=== PATIENT | female | born 1965 | race Caucasian/White ===

== ENCOUNTER → 2016-10-08 | Outpatient (CLI) | payer OTHER ==
--- NOTE | 2016-10-09 12:05 | MR ---
EXAMINATION TYPE: MR shoulder RT wo/w con DATE OF EXAM: 10/08/2016 COMPARISON: NONE HISTORY: 51-year-old female with right shoulder soft tissue mass, Mass on top of rt shoulder, Mass ma rked Technique: Multiplanar, multisequence images of the right shoulder were obtained before and after adm inistration of 20 mL intravenous MultiHance gadolinium contrast. FINDINGS: Long head biceps tendon is intact. There is some heterogeneous signal within the subscapularis tendon. The majority of the subscapularis tendon remains intact. There is moderate degenerative joint space narrowing with marginal spurring and capsular hypertrophy with subchondral cystic change at the acromioclavicular joint. A multilocular cystic mass extends from the anterior and superior aspect of AC joint into the subcuta neous soft tissues along the top shoulder and is indicated by a palpable marker. This measures 1.8 cm wide by 3.0 cm AP by 1.6 cm thick. Postcontrast images suggest wall/septal enhancement. No enhancing soft tissue components. There is a small effusion within the subacromial/subdeltoid bursa extending into the lateral deltoid shoulder. There is additional enhancement within the bursae and lateral deltoid shelf, glenoid humeral joint sp nain, and enhancement extending up into the AC joint space at the base of the multilocular cystic lesi on. This favors a subtle full-thickness tear and possible geyser sign. Heterogeneous signal of both the supraspinatus and infraspinatus tendons. There is a deep tear of the anterior to mid supraspinatus tendon at the footprint measuring 9 mm AP and 1.3 cm long. There is in terstitial extension of tear posteriorly into the posterior supraspinatus tendon fibers for a total d imension of 1.9 cm AP and 1.5 cm long. No rotator cuff muscle atrophy. Some degenerative signal of the superior labrum. No discrete labral tear given nonarthrographic techn ique and no paralabral cyst. The glenohumeral joint appears intact. No Hill-Sachs deformity or os acromiale. Patchy red marrow hyperplasia is present and can be seen in setting of anemia, obesity, smoking, and chronic disease. IMPRESSION: 1. Palpable marker along the top shoulder. Underlying, there is a 1.9 cm multilocular ganglion cyst e xtending from the anterior and superior aspect of the moderately degenerated AC joint. 2. Diffuse rotator cuff tendinosis with either a high-grade bursal sided tear of the anterior suprasp inatus tendon (9 mm AP by 1.3 cm long), or more likely, a nondisplaced full-thickness tear given the degree of fluid in the overlying bursa and lateral deltoid shelf. There is interstitial extension of tear into the posterior supraspinatus tendon fibers. 3. No rotator cuff muscle atrophy.
== END | disposition home or self-care (01) ==
LOC: RADMRIMAIN 09:55
PROVIDERS: ATTEND Orthopaedic Surgery
DX: M67.411 Ganglion, right shoulder (principal)
CPT/HCPCS: 73223; A9577

== ENCOUNTER → 2017-06-03 | Outpatient (CLI) | payer OTHER ==
--- NOTE | 2017-06-04 09:36 | MM ---
Reason for exam: screening (asymptomatic). Last mammogram was performed 1 year and 5 months ago. History: Patient is postmenopausal. Family history of breast cancer in sister at age 56. Physical Findings: A clinical breast exam by your physician is recommended on an annual basis and results should be correlated with mammographic findings. MG Screening Mammo w CAD Bilateral CC and MLO view(s) were taken. Prior study comparison: January 10, 2016, bilateral MG screening mammo w CAD. July 14, 2012, bilateral digital screening mammo w/CAD. There are scattered fibroglandular densities. Stable benign calcifications. No significant changes when compared with prior studies. ASSESSMENT: Benign, BI-RAD 2 RECOMMENDATION: Routine screening mammogram of both breasts in 1 year.
== END | disposition home or self-care (01) ==
LOC: RADMAMWWP 09:49
PROVIDERS: ATTEND Internal Medicine
DX: Z12.31 Encounter for screening mammogram for malignant neoplasm of breast (principal)
CPT/HCPCS: 77067

== ENCOUNTER → 2017-07-14 | Outpatient (CLI) | payer OTHER ==
--- NOTE | 2017-07-14 11:19 | XR ---
EXAMINATION TYPE: XR ribs LT DATE OF EXAM: 07/14/2017 COMPARISON: NONE HISTORY: Pain TECHNIQUE: 4 views submitted FINDINGS: Arthropathy of the AC joint. There is a deformity of the posterior left 11th and 10th ribs likely in the basis of remote trauma. Remaining rib cage appears to be intact. IMPRESSION: A chronic appearing deformity of the left posterior 10th and 11th ribs. 12 rib may also b e involved. Correlate for history of previous trauma or fracture. Bone scan could BE obtained if ther e is no history of trauma.
== END | disposition home or self-care (01) ==
LOC: RADXRMAIN 09:53
PROVIDERS: ATTEND Internal Medicine
DX: M95.4 Acquired deformity of chest and rib (principal)

== ENCOUNTER → 2018-05-05 | Outpatient (CLI) | payer OTHER ==
--- NOTE | 2018-05-05 15:01 | MM ---
Reason for exam: clinical finding. Last mammogram was performed 11 months ago. History: Patient is postmenopausal. Family history of breast cancer in sister at age 56. Physical Findings: Nurse did not find any significant physical abnormalities on exam. MG Diagnostic Mammo w CAD N[place]EL Bilateral CC and MLO view(s) were taken. Prior study comparison: June 03, 2017, bilateral MG screening mammo w CAD. January 10, 2016, bilateral MG screening mammo w CAD. There are scattered fibroglandular densities. Finding: There are typically benign round calcifications in the upper outer quadrant, middle position of the right breast. Scattered benign round calcifications bilaterally. There is a chronic nodularity in the left breast. There is no discrete abnormality. These results were verbally communicated with the patient and result sheet given to the patient on 05/05/18. ASSESSMENT: Benign, BI-RAD 2 RECOMMENDATION: Routine screening mammogram of both breasts in 1 year.
--- NOTE | 2018-05-05 15:02 | USB ---
Reason for exam: clinical finding. History: Patient is postmenopausal. Family history of breast cancer in sister at age 56. Indicated problem(s): pain in the right breast. US Breast RT Right complete breast ultrasound includes all four quadrants, the retroareolar region and axilla. Finding demonstrates a 2 x 2 x 3mm oval, cystic lesion at 12 o'clock. These results were verbally communicated with the patient and result sheet given to the patient on 05/05/18. ASSESSMENT: Benign, BI-RAD 2 RECOMMENDATION: Routine screening mammogram of both breasts in 1 year. Manage on a clinical basis with regard to pain.
== END ==
LOC: RADMAMWWP 13:24
PROVIDERS: ATTEND Internal Medicine
DX: N64.4 Mastodynia (principal)
CPT/HCPCS: 77066

== ENCOUNTER → 2018-07-09 | Outpatient (CLI) | payer OTHER ==
--- NOTE | 2018-07-09 16:26 | CT ---
EXAMINATION TYPE: CT abdomen pelvis wo con DATE OF EXAM: 07/09/2018 COMPARISON: None INDICATION: Left sided pain with hematuria DLP: 1958.5 mGycm, Automated exposure control for dose reduction was used. CONTRAST: 0 mL of Isovue 300. Study performed without Oral Contrast TECHNIQUE: Axial images were obtained from above the diaphragm to the pubic rami in the axial plane a t 5 mm thick sections. Reconstructed images are reviewed on the computer in the coronal plane. FINDINGS: Limited CT sections are obtained the lung bases. The lung bases are clear. CT ABDOMEN: Liver: Normal Spleen: Normal Pancreas: Normal Adrenal glands: Left adrenal gland is thickened measuring 2.0 cm transverse dimension. The right adre nal gland is thickened measuring 2.5 cm in transverse dimension and contains a punctate calcification . Gallbladder: Normal Kidneys: No masses are evident. No hydronephrosis is present. No cysts are present. There is a 0.4 cm nonobstructing renal calcification in the mid right kidney. Aorta: Vascular calcification is within the aorta. Inferior vena cava: Normal. CT PELVIS: Loops of bowel within the abdomen and pelvis are normal. The study is performed without oral cont rast limiting bowel evaluation. Multiple scattered diverticuli are within the sigmoid colon. No acute diverticulitis is evident. Appendix: Normal as visualized. Urinary bladder: Normal. Genitourinary structures: Uterus is normal. Adnexal regions are clear. Osseous structures: No suspicious lytic or sclerotic lesions. IMPRESSIONS: 1. Diverticulosis without acute diverticulitis. 2. Nonobstructing renal calcifications mid right kidney. 3. Thickened bilateral adrenal glands.
== END ==
LOC: RADCTMAIN 13:29
PROVIDERS: ATTEND Physician Assistant
DX: K57.90 Diverticulosis of intestine, part unspecified, without perforation or abscess without bleeding (principal); N28.89 Other specified disorders of kidney and ureter; E27.9 Disorder of adrenal gland, unspecified; Z88.2 Allergy status to sulfonamides; Z88.8 Allergy status to other drugs, medicaments and biological substances
CPT/HCPCS: 74176

== ENCOUNTER → 2019-09-08 | Outpatient (CLI) | payer OTHER ==
--- NOTE | 2019-09-10 08:48 | MM ---
Reason for exam: screening (asymptomatic). Last mammogram was performed 1 year and 4 months ago. History: Patient is postmenopausal. Family history of breast cancer in sister at age 56. Physical Findings: A clinical breast exam by your physician is recommended on an annual basis and results should be correlated with mammographic findings. MG Screening Mammo w CAD Bilateral CC and MLO view(s) were taken. Prior study comparison: May 05, 2018, bilateral MG diagnostic mammo w CAD N[place]EL. June 03, 2017, bilateral MG screening mammo w CAD. There are scattered fibroglandular densities. There is chronic nodularity in the left breast. Benign group of round calcifications right upper outer quadrant. No significant changes when compared with prior studies. ASSESSMENT: Benign, BI-RAD 2 RECOMMENDATION: Routine screening mammogram of both breasts in 1 year.
== END | disposition home or self-care (01) ==
LOC: RADMAMWWP 13:29
PROVIDERS: ATTEND Internal Medicine
DX: Z12.31 Encounter for screening mammogram for malignant neoplasm of breast (principal)
CPT/HCPCS: 77067

== ENCOUNTER 2021-10-23 08:08 | Inpatient (IN) | payer OTHER ==
[2021-10-23] MEDS ORDERED: fentaNYL (PF) 50 MCG/ML 2 ML AMP ONE (08:54)
[2021-10-23] MEDS ORDERED: SODIUM CHLORIDE 0.9% 1,000 ML IV ONE (09:00)
[2021-10-23] MEDS ORDERED: LIDOCAINE 1% INJ 10MG/ML (30 ML VIAL-PF) SQ ONE (09:12)
[2021-10-23] MEDS ORDERED: MIDAZOLAM 2 MG/2 ML VIAL IV ONE ×2 (09:14→10:04)
[2021-10-23] MEDS: fentaNYL (PF) 50 MCG/ML 2 ML AMP IV ONE ×2 (09:14→09:29)
[2021-10-23] MEDS ORDERED: HEPARIN SODIUM 1,000 UN/ML (10ML VL) ONE (09:36)
[2021-10-23] MEDS ORDERED: HYDROmorphone 0.5 MG/0.5 ML SYRINGE IVP ONE ×2 (09:58→10:28)
[2021-10-23] MEDS ORDERED: TICAGRELOR 90 MG TAB PO ONE (10:00)
[2021-10-23] MEDS: HEPARIN SODIUM 1,000 UN/ML (10ML VL) IV ONE ×3 (10:00→10:31)
[2021-10-23] MEDS ORDERED: TICAGRELOR 90 MG TAB ONE (10:01)
[2021-10-23] MEDS ORDERED: NITROGLYCERIN 1000MCG/10ML SYRINGE INTRACORON ONE ×2 (10:19→10:29)
[2021-10-23] MEDS ORDERED: IOPAMIDOL-370 125ML BTL INJ ONE (10:22)
[2021-10-23] MEDS ORDERED: IOPAMIDOL-370 100ML BTL INJ ONE (10:33)
[2021-10-23 12:27] LABS: Glucose,Whole Blood 200 mg/dL (70-110)
[2021-10-23] MEDS ORDERED: ACETAMINOPHEN TAB 325 MG TAB PO PRN (13:08)
[2021-10-23] MEDS ORDERED: MELATONIN 3 MG TABLET PO PRN (13:08)
[2021-10-23] MEDS ORDERED: NALOXONE 0.4 MG/ML 1 ML VIAL IV PRN (13:08)
[2021-10-23] MEDS ORDERED: DEXTROSE 50% SYRINGE 50 ML IVP PRN ×2 (13:12)
[2021-10-23] MEDS: HYDROcodone/APAP 10-325MG 1 EACH TAB PO PRN (13:22)
[2021-10-23] MEDS: BACLOFEN 10 MG TAB PO SCH ×2 (13:22→20:59)
[2021-10-23] MEDS: ALBUTEROL NEBULIZED 2.5 MG/3 ML INHALATION PRN ×2 (14:40→19:56)
--- NOTE | 2021-10-23 14:51 | XR ---
EXAMINATION TYPE: XR chest 1V portable DATE OF EXAM: 10/23/2021 2:19 PM COMPARISON: Chest radiographs from 07/14/2017 TECHNIQUE: XR chest 1V portable Portable AP radiograph of the chest. CLINICAL INDICATION:Female, 56 years old with history of shortness of breath; FINDINGS: Lungs/Pleura: Increased interstitial lung markings throughout the lungs. There is no evidence of pleu ral effusion, focal consolidation, or pneumothorax. Pulmonary vascularity: Unremarkable. Heart/mediastinum: Cardiomediastinal silhouette is enlarged and stable. Musculoskeletal: No acute osseous pathology. IMPRESSION: 1. No acute cardiopulmonary disease/process. 2. Chronic interstitial lung changes.
[2021-10-23] MEDS ORDERED: ATROPINE SULFATE 0.1 MG/ML 10ML SYRINGE IV PRN (16:16)
[2021-10-23] MEDS ORDERED: NITROGLYCERIN SL TABS 0.4 MG TAB SUBLINGUAL PRN (16:16)
[2021-10-23] MEDS ORDERED: ZOLPIDEM 5 MG TAB PO PRN (16:16)
[2021-10-23] MEDS ORDERED: RX INFO: IV CONTRAST WAS GIVEN 1 EACH MISC MISCELLANE PRN (16:16)
[2021-10-23] MEDS ORDERED: MAG HYDROX/AL HYDROX/SIMETH 30 ML CUP PO PRN (16:16)
[2021-10-23 16:32] LABS: Glucose,Whole Blood 177 mg/dL (70-110)
[2021-10-23] MEDS: INSULIN ASPART (NovoLOG) 100 UNIT/ML VIAL SQ SCH ×2 (16:44→20:59)
[2021-10-23 20:09] LABS: Glucose,Whole Blood 137 mg/dL (70-110)
--- NOTE | 2021-10-23 20:39 | CC ---
CARDIAC CATHETERIZATION REPORT INDICATION: Acute inferior wall SD. PROCEDURE NOTE: After obtaining informed consent, left heart catheterization and coronary angiogram were performed via the right femoral artery using standard [facility] catheters. The patient tolerated the procedure well without any obvious immediate complications. I performed femoral catheterization instead of the radial catheterization as she has a questionable problem with her right brachial artery that has been investigated in the past. I do not have any of the records. The patient received moderate conscious sedation. Total sedation time was 15 minutes. FINDINGS: 1. Hemodynamics: Left ventricular end-diastolic pressure is 16 mm. There is no significant gradient across the aortic valve. 2. Left ventriculogram: Left ventriculogram is not performed. 3. Angiographic data: a.Right coronary artery: Right coronary artery is a large dominant vessel, that is subtotally occluded in its mid portion with an area of plaque rupture. There are extensive collaterals from the left to the distal right. b.Left main coronary artery is a normal-sized vessel and is free of stenosis. Divides into left anterior descending coronary artery and circumflex coronary artery. The circumflex coronary artery distally shows a 90% focal stenosis. Ramus intermedius shows a 70% to 80% ostial stenosis. LAD has a focal 70% stenosis. CONCLUSION: Severe 3-vessel coronary artery disease as described above with acute occlusion of the right coronary artery based on the EKG changes and clinical presentation. PLAN: I am going to ask Dr. Wilkerson, the on-call golf sales manager, to proceed with angioplasty of the right coronary artery and decide on what to do with the rest of her vessels at a later time. MMODL / IJN: [id number] /
--- NOTE | 2021-10-23 20:39 | CONS ---
CONSULTATION CHIEF COMPLAINT: Chest pain. HISTORY OF PRESENT ILLNESS: This is a 56-year-old lady with a history of hypertension, arthritis, non-insulin- dependent diabetes, and dyslipidemia, who presented to [facility] yesterday in the evening complaining of chest pain. She describes it as a precordial chest pressure, itlketak-tj-ajgefk intensity at rest. Had evidence of inferior wall myocardial infarction. ER physician has diagnosed acute ibb-UL-qipnhre elevation WA. She had a V/Q scan, that was negative for pulmonary embolism, and was treated with heparin and became pain-free. As a physician rounding in the hospital, I went to see the patient this morning, and the patient at the time of my evaluation was chest-pain- free, hemodynamically stable, and in no apparent distress. She has had 3 sets of troponins. They have all come back elevated. The third set was higher than the second set. Given her presentation with acute inferior wall WA and elevated troponins, I advised the patient to undergo emergent cardiac catheterization with a view to performing angioplasty, and I am transferring her to [facility] for the same. I am going to do a right femoral catheterization as the patient tells me she has an expanding lesion within the right brachial artery. I am not exactly sure what it is. From her description, it sounds like an aneurysm. I do not have any of the records of the prior testing that she had. PAST MEDICAL HISTORY: Significant for hypertension, diabetes, dyslipidemia, and severe COPD. MEDICATIONS AT HOME: Include: 1. Nebulizers. 2. Amlodipine 5 daily. 3. Pepcid. 4. Claritin. 5. Glucophage. 6. Singulair. 7. Crestor. 8. Turmeric. ALLERGIES: As charted. FAMILY HISTORY: Significant for premature coronary artery disease. SOCIAL HISTORY: Significant for smoking. There is no history of EtOH abuse or drug abuse. REVIEW OF SYSTEMS: HEENT: Unremarkable. CARDIAC: As described above. RESPIRATORY: As described above. GI: Negative. GENITOURINARY: Negative. ALLERGY/IMMUNOLOGY: Negative. SKIN: Negative. MUSCULOSKELETAL: Significant for arthritis. PSYCHOSOCIAL: Negative. DERM: Negative. CONSTITUTIONAL: Negative. ONCOLOGICAL: Negative. Rest of the system review is not relevant. PHYSICAL EXAMINATION: GENERAL: Comfortable at rest. VITAL SIGNS: Stable. CHEST: Reveals diffuse bilateral rhonchi. HEART: Reveals first and second heart sounds. No gallop. No murmur. ABDOMEN: Soft and nontender. EXTREMITIES: Did not reveal any edema. Peripheral pulses are felt. LABORATORY DATA: I reviewed the labs. Renal functions are normal. Troponins are elevated. EKG shows evidence of recent inferior wall myocardial infarction. ASSESSMENT: Acute inferior wall myocardial infarction. PLAN: We will transfer the patient to [facility] for further care. MMODL / IJN: [id number] /
[2021-10-23] MEDS ORDERED: NON FORMULARY DRUG (Turmeric Root Extract [Turmeric] 500 MG Tablet) PO SCH (21:00)
--- NOTE | 2021-10-24 00:22 | P.HPIM ---
History of Present Illness H&P Date: 10/24/21 Chief Complaint: Chest pain Patient is a 56-year-old female with a known history of hypertension, hyperlipidemia, diabetes type 2 cid-ocyfxgo-xyjhqcfxj, ongoing nicotine addiction and chronic back pain presents to ER with complaints of chest pain. Chest pain is mainly mid retrosternal and across the upper chest. Patient felt like tightness sensation in the chest. Denied any radiation of the pain. Patient felt very dizzy and lightheaded and diaphoretic and also shortness of breath. Patient had similar symptoms twice recently but resolved by itself. Patient was also having chronic cough and exertional dyspnea. No sputum production. No fever no chills. Denied any recent illnesses. No sick contacts or recent travel. Patient sodium level is 142 potassium 3.6 chloride 106 bicarb is 28.8 BUN 17 and creatinine 0.7 blood sugar is 153 and liver enzymes are not elevated UDS is positive for cannabinoids and opiates. WBC 12.9 hemoglobin 15.6 and platelets 213 D-dimer was 763.5 Troponin 1976, 2451 and 3337 and proBNP is 602 Chest x-ray showed no acute cardiopulmonary findings EKG showed sinus rhythm with evidence of recent inferior wall infarct. Patient was transferred to [facility] for coronary intervention. Patient underwent cardiac catheterization showed severe three-vessel coronary disease with occlusion of the right coronary artery. Review of Systems Constitutional: Patient denies any fever or chills . no Generalized weakness. Abdomen: Patient denied any nausea or vomiting or abd. pain Cardiovascular: Patient does complain of chest tightness, dizziness lightheadedness and diaphoretic. No palpations. No leg swelling. Respiratory: patient denied any cough is from production. No shortness of breath Neurologic: Patient denied any numbness or tingling headache. Musculoskeletal: Patient denies any complaints of joint swelling or deformity. Skin: Negative Psychiatric: Negative Endocrine: No heat or cold intolerance. No recent weight gain. Genitourinary: No dysuria or hematuria. All other 14 point ROS negative except the above Past Medical History Past Medical History: Hyperlipidemia, Hypertension Additional Past Medical History / Comment(s): scoliosis, bulging/herniated discs in back, chronic right hip pain for multiple years. History of Any Multi-Drug Resistant Organisms: None Reported Past Surgical History: Heart Catheterization With Stent Additional Past Surgical History / Comment(s): colonoscopy with hemrhoids banded. hand surgery. Past Anesthesia/Blood Transfusion Reactions: No Reported Reaction Date of Last Stent Placement:: 10/23/2021 Past Psychological History: No Psychological Hx Reported Smoking Status: Current every day smoker Past Alcohol Use History: None Reported Additional Past Alcohol Use History / Comment(s): patient states she is a current everyday smoker 2 packs/day but she is quitting now. Past Drug Use History: Marijuana Medications and Allergies Home Medications Medication Instructions Recorded Confirmed Type Albuterol Sulfate [Proair Hfa] 2 puff INHALATION RT-Q6H PRN 10/23/21 10/23/21 History Ascorbic Acid [Vitamin C] 500 mg PO DAILY 10/23/21 10/23/21 History Baclofen 10 mg PO BID 10/23/21 10/23/21 History Budesonide-Formot 160-4.5 Mcg 2 puff INHALATION RT-DAILY 10/23/21 10/23/21 Hi story [Symbicort 160-4.5 Mcg Inhaler] Cholecalciferol [Vitamin D3 (25 25 mcg PO DAILY 10/23/21 10/23/21 History Mcg = 1000 Iu)] HYDROcodone/APAP 10-325MG [Fedscreek 1 tab PO QID PRN 10/23/21 10/23/21 History 10-325] Loratadine [Claritin] 10 mg PO DAILY 10/23/21 10/23/21 History Montelukast [Singulair] 10 mg PO DAILY 10/23/21 10/23/21 History Omeprazole 20 mg PO DAILY 10/23/21 10/23/21 History Rosuvastatin Calcium [Crestor] 40 mg PO DAILY 10/23/21 10/23/21 History Turmeric Root Extract [Turmeric] 500 mg PO BID 10/23/21 10/23/21 History amLODIPine [Norvasc] 5 mg PO DAILY 10/23/21 10/23/21 History metFORMIN HCL 500 mg PO DAILY@1500 10/23/21 10/23/21 History Allergies Allergy/AdvReac Type Severity Reaction Status Date / Time metoclopramide [From Reglan] Allergy Confusion Verified 10/23/21 12:34 Physical Exam Vitals: Vital Signs Temp Pulse Pulse Resp BP Pulse Ox 10/23/21 20:06 56 L 10/23/21 19:56 58 L 10/23/21 19:50 98.1 F 59 L 20 170/85 96 10/23/21 15:15 73 20 118/75 95 10/23/21 14:54 64 10/23/21 14:40 60 10/23/21 14:15 62 20 119/77 94 L 10/23/21 14:00 73 20 10/23/21 13:15 66 20 118/72 95 10/23/21 12:45 63 20 135/87 95 10/23/21 12:15 68 20 129/77 94 L 10/23/21 12:00 65 18 134/78 93 L 10/23/21 11:45 59 L 18 116/74 93 L 10/23/21 11:30 72 18 119/77 88 L 10/23/21 10:53 75 16 134/78 93 L Intake and Output 10/23/21 10/23/21 10/24/21 14:59 22:59 06:59 Intake Total 1000 Balance 1000 Intake: IV 400 Oral 600 Other: Voiding Method Toilet Toilet Bedpan # Voids 2 3 Weight 110.223 kg PHYSICAL EXAMINATION: Patient is lying in the bed comfortably, no acute distress, awake alert and oriented.. HEENT: Normocephalic. Neck is supple. Pupils reactive. Nostrils clear. Oral cavity is moist. Morbidly obese. Neck reveals no JVD, carotid bruits, or thyromegaly. CHEST EXAMINATION: Trachea is central. Symmetrical expansion. Bibasilar diminished sounds and no wheezing noted.. CARDIAC: Normal S1, S2 with no gallops. No murmurs ABDOMEN: Soft. Bowel sounds present. Nontender. No organomegaly. No abdominal bruits. Extremities: reveal no edema. No clubbing or cyanosis Neurologically awake, alert, oriented x3 with well-coordinated movements. No focal deficits noted Skin: No rash or skin lesions. Psychiatric: Coperative. Nonsuicidal, anxious, Musculoskeletal: No joint swelling or deformity. Normal range of motion. Results Labs: Abnormal Lab Results - Last 24 Hours (Table) 10/23/21 10/23/21 10/23/21 Range/Units 12:21 16:30 20:08 POC Glucose (mg/dL) 200 H 177 H 137 H (70-110) mg/dL Thrombosis Risk Factor Assmnt - DVT/VTE Prophylaxis DVT/VTE Prophylaxis: Pharmacologic Prophylaxis ordered - Choose All That Apply Any of the Below Risk Factors Present?: Yes Each Factor Represents 1 point: Acute NJ, Age 41-60 years, Medical pt on bed rest Other Risk Factors: No Other congenital or acquired thrombophilia - If yes, enter type in comment: No Thrombosis Risk Factor Assessment Total Risk Factor Score: 3 Thrombosis Risk Factor Assessment Level: Moderate Risk Assessment and Plan Assessment: Acute non-ST elevated NJ status postcardiac catheterization Recent inferior wall NJ as per EKG Hypertension Diabetes type 2 nha-mutjdee-wmkjvycul Chronic back pain Asthma and COPD Morbid obesity GI and DVT prophylaxis Plan: Patient is status post cardiac catheterization and found to have triple-vessel disease. Continue with aspirin, statins and Brilinta, metoprolol was added. Cardiology is on board. Continue telemetry monitoring. Follow-up repeat CBC and BMP. Prognosis is guarded. Smoking cessation has been consulted. Time with Patient: Greater than 30
--- NOTE | 2021-10-24 01:24 | P.PRCINT ---
Percutaneous Coronary Int. - Percutaneous Coronary Intervention Percutaneous Coronary Intervention: PROCEDURES PERFORMED: Right coronary angiography, PCI RCA with 4.0 x 12mm Xience mid RCA, 3.5 x 23mm Xience distal RCA INDICATION: Non-STEMI HISTORY: Patient is a pleasant 56-year-old female who presented with chest di scomfort and was found to have non-STEMI. She underwent diagnostic heart catheterization which showed obstructive disease of the LAD as well as circumflex with culprit felt to be the RCA with 99% stenosis. Therefore I was asked to perform PCI of the RCA. PROCEDURE: After the risks, benefits and alternatives of the above mentioned procedure explained in detail with the patient, informed consent was obtained. Patient had already been taken to the catheterization lab and prepped and draped in usual fashion. A right femoral sheath and artery been placed for diagnostic procedure. A 6-Yakut AL 0.75 guide was used to engage the RCA. A BMW wire was attempted to pass however not easily able to be wired. Therefore a 0.014 Fielder XT wire was used to pass the lesion and placed on the distal RCA. Predilation was initially performed with a 1.5 balloon and then with a 3.25 x 12 mm noncompliant balloon. Next a 4.0 x 12 mm Xience TIMMY was placed in the mid RCA. There was a more distal 70% stenosis and therefore predilation was performed with a 3.25 x 12 mm noncompliant balloon. An additional 3.5 x 23 mm Xience TIMMY was placed in the distal RCA. Predilation there was 99% stenosis and ELIN 2 flow and post- dilation there was 0% stenosis and ELIN-3 flow. Right femoral angiogram showed adequate anatomy for closure a 6-Yakut Angio-Seal was placed. Hemostasis was achieved. The patient tolerated the procedure well. Patient was transported back to the post catheterization holding area in stable condition. Conscious Sedation: Patient was monitored under the direct supervision of vision of myself for conscious sedation using Versed and fentanyl for a total duration of 36 minutes HEMODYNAMICS: Aorta: 147/78 FINAL IMPRESSION: 1. CAD as described above including tandem 99% and 70% RCA stenoses, status post PCI RCA with 4.0 x 12mm Xience mid RCA, 3.5 x 23mm Xience distal RCA 2. Residual obstructive LAD and circumflex disease PLAN: 1. Aggressive risk factor modification per most recent ACC/AHA guidelines. 2. Continue dual antiplatelets with aspirin and Brilinta for 12 months. 3. Staged PCI of LAD/circumflex
[2021-10-24] MEDS: ONDANSETRON 4 MG/2 ML VIAL IVP PRN (02:18)
[2021-10-24] MEDS: ALPRAZolam 0.25 MG TAB PO PRN ×2 (04:16→20:54)
[2021-10-24 05:43] LABS: Glucose,Whole Blood 174 mg/dL (70-110)
[2021-10-24] MEDS: INSULIN ASPART (NovoLOG) 100 UNIT/ML VIAL SQ SCH ×4 (06:33→20:54)
[2021-10-24] MEDS: PANTOPRAZOLE 40 MG TABLET PO SCH (06:34)
[2021-10-24 07:53] LABS: African American GFR (CKD) >90 (>60 ml/min/1.73 sqM); Anion Gap 8 mmol/L; Blood Urea Nitrogen 11 mg/dL (7-17); Calcium 8.9 mg/dL (8.4-10.2); Carbon Dioxide 29 mmol/L (22-30); Chloride 103 mmol/L (98-107); Glucose 152 mg/dL (74-99); Magnesium 1.8 mg/dL (1.6-2.3); Non-African American GFR(CKD) >90 (>60 ml/min/1.73 sqM); Potassium 3.8 mmol/L (3.5-5.1); Sodium 140 mmol/L (137-145)
[2021-10-24 08:08] LABS: Basophils % (A) 0 %; Eosinophils # (A) 0.1 k/uL (0-0.7); Eosinophils % (A) 0 %; HCT 54.3 % (34.0-46.0); HGB 17.4 gm/dL (11.4-16.0); Hypochromasia Slight; Lymphocytes # (A) 1.4 k/uL (1.0-4.8); Lymphocytes % (A) 8 %; MCH 29.7 pg (25.0-35.0); MCV 92.9 fL (80.0-100.0); Mean Platelet Volume 9.4; Monocytes # (A) 0.8 k/uL (0-1.0); Monocytes % (A) 5 %; Neutrophils # (A) 15.1 k/uL (1.3-7.7); Neutrophils % (A) 86 %; Platelet Count 238 k/uL (150-450); RBC 5.84 m/uL (3.80-5.40); RDW 14.8 % (11.5-15.5); WBC 17.6 k/uL (3.8-10.6)
[2021-10-24 08:29] LABS: Prothrombin Time 10.9 sec (9.0-12.0)
[2021-10-24] MEDS: SYMBICORT 160-4.5 MCG INHALER INHALATION SCH (08:33)
[2021-10-24] MEDS: ALBUTEROL NEBULIZED 2.5 MG/3 ML INHALATION PRN (08:33)
[2021-10-24] MEDS: ASPIRIN 81 MG PO SCH (09:41)
[2021-10-24] MEDS: LORATADINE 10 MG TAB PO SCH (09:41)
[2021-10-24] MEDS: MONTELUKAST 10 MG TAB PO SCH (09:41)
[2021-10-24] MEDS: ASCORBIC ACID 500 MG TAB PO SCH (09:41)
[2021-10-24] MEDS: CHOLECALCIFEROL 25 MCG (1000 IU) TABLET PO SCH (09:41)
[2021-10-24] MEDS: TICAGRELOR 90 MG TAB PO SCH ×2 (09:42→20:54)
[2021-10-24] MEDS: ATORVASTATIN 80 MG TAB PO SCH (09:42)
[2021-10-24] MEDS: amLODIPine 5 MG TAB PO SCH (09:42)
[2021-10-24] MEDS: METOPROLOL SUCCINATE (ER) 25 MG TAB.ER.24H PO SCH (09:42)
[2021-10-24] MEDS: BACLOFEN 10 MG TAB PO SCH ×2 (09:42→20:54)
[2021-10-24] MEDS: NICOTINE 14MG/24HR PATCH TRANSDERM SCH (10:08)
[2021-10-24 11:56] LABS: Glucose,Whole Blood 137 mg/dL (70-110)
--- NOTE | 2021-10-24 12:45 | P.PN ---
Subjective Progress Note Date: 10/24/21 HISTORY OF PRESENT ILLNESS: This is a 56-year-old female who underwent cardiac catheterization with Dr. King revealing coronary artery disease including tandem 99% and 70% RCA stenosis. Patient also found to have stenosis of LAD and circumflex. Patient underwent stenting of the RCA [address] Wilkerson. Patient examined this morning at the bedside. Patient denies any chest pain or pressure. She denies any shortness of breath. She reports an occasional cough. Patient is a 1.5-2 PPD smoker. She feels like her breathing is better today than it usually is. WBC today 17.6. Patient is afebrile. Vital signs are stable. PHYSICAL EXAM: VITAL SIGNS: Reviewed. GENERAL: Well-developed in no acute distress. NECK: Supple. No JVD or thyromegaly LUNGS: Respirations even and unlabored. Lungs diminished with expiratory wheezing and scattered rhonchi. HEART: Regular rate and rhythm. S1 and S2 heard. EXTREMITIES: Normal range of motion. No clubbing or cyanosis. Peripheral pulses intact. No lower extremity edema ASSESSMENT: Non-STEMI, status post RCA stenting Leukocytosis Hypertension Hyperlipidemia Diabetes COPD Nicotine dependence PLAN: Continue current cardiac medications Continue dual antiplatelet therapy Patient will have staged PCI of LAD and circumflex in near future Strongly advised patient to stop smoking Possible stenting of circumflex and LAD Friday or outpt in next 1-2 weeks. Nurse practitioner note has been reviewed by physician. Signing provider agrees with the documented findings, assessment, and plan of care. Objective - Vital Signs Vital signs: Vital Signs Temp 97.3 F L 10/24/21 04:11 Pulse 73 10/24/21 08:45 Resp 18 10/24/21 04:11 BP 159/85 10/24/21 04:11 Pulse Ox 99 10/24/21 08:33 FiO2 Intake & Output 10/23/21 10/24/21 10/24/21 18:59 06:59 18:59 Intake Total 1000 400 Balance 1000 400 Weight 110.223 kg Intake: IV 400 Oral 600 400 Other: Voiding Method Toilet Toilet Bedpan # Voids 3 2 1 - Labs CBC & Chem 7: 10/24/21 06:21 10/24/21 06:21 Labs: Abnormal Lab Results - Last 24 Hours (Table) 10/23/21 10/23/21 10/24/21 Range/Units 16:30 20:08 05:42 WBC (3.8-10.6) k/uL RBC (3.80-5.40) m/uL Hgb (11.4-16.0) gm/dL Hct (34.0-46.0) % Neutrophils # (1.3-7.7) k/uL Creatinine (0.52-1.04) mg/dL Glucose (74-99) mg/dL POC Glucose (mg/dL) 177 H 137 H 174 H (70-110) mg/dL Hemoglobin A1c (0.0-6.0) % 10/24/21 10/24/21 10/24/21 Range/Units 06:21 06:21 06:21 WBC 17.6 H (3.8-10.6) k/uL RBC 5.84 H (3.80-5.40) m/uL Hgb 17.4 H (11.4-16.0) gm/dL Hct 54.3 H (34.0-46.0) % Neutrophils # 15.1 H (1.3-7.7) k/uL Creatinine 0.45 L (0.52-1.04) mg/dL Glucose 152 H (74-99) mg/dL POC Glucose (mg/dL) (70-110) mg/dL Hemoglobin A1c 7.2 H (0.0-6.0) % 10/24/21 Range/Units 11:55 WBC (3.8-10.6) k/uL RBC (3.80-5.40) m/uL Hgb (11.4-16.0) gm/dL Hct (34.0-46.0) % Neutrophils # (1.3-7.7) k/uL Creatinine (0.52-1.04) mg/dL Glucose (74-99) mg/dL POC Glucose (mg/dL) 137 H (70-110) mg/dL Hemoglobin A1c (0.0-6.0) %
[2021-10-24 14:40] VITALS: BMI 43.0
[2021-10-24 16:51] LABS: Glucose,Whole Blood 136 mg/dL (70-110)
[2021-10-24] MEDS ORDERED: SENNOSIDES 8.6 MG TAB PO PRN (19:19)
[2021-10-24 20:16] LABS: Glucose,Whole Blood 147 mg/dL (70-110)
[2021-10-25] MEDS: ONDANSETRON 4 MG/2 ML VIAL IVP PRN (04:38)
[2021-10-25 05:46] LABS: Glucose,Whole Blood 147 mg/dL (70-110)
[2021-10-25] MEDS: INSULIN ASPART (NovoLOG) 100 UNIT/ML VIAL SQ SCH ×2 (06:10→12:04)
[2021-10-25] MEDS: PANTOPRAZOLE 40 MG TABLET PO SCH (06:58)
[2021-10-25] MEDS: ALBUTEROL NEBULIZED 2.5 MG/3 ML INHALATION PRN (07:17)
[2021-10-25] MEDS: SYMBICORT 160-4.5 MCG INHALER INHALATION SCH (07:17)
[2021-10-25 08:34] LABS: Basophils % (A) 0 %; Eosinophils % (A) 0 %; HGB 18.8 gm/dL (11.4-16.0); Hypochromasia Slight; Lymphocytes # (A) 1.9 k/uL (1.0-4.8); Lymphocytes % (A) 14 %; MCH 29.9 pg (25.0-35.0); MCV 93.2 fL (80.0-100.0); Mean Platelet Volume 8.8; Monocytes # (A) 0.7 k/uL (0-1.0); Monocytes % (A) 5 %; Neutrophils # (A) 10.2 k/uL (1.3-7.7); Neutrophils % (A) 79 %; Platelet Count 261 k/uL (150-450); RBC 6.31 m/uL (3.80-5.40); RDW 14.8 % (11.5-15.5); WBC 12.9 k/uL (3.8-10.6)
[2021-10-25 08:37] VITALS: RESP 20
[2021-10-25 08:40] LABS: African American GFR (CKD) >90 (>60 ml/min/1.73 sqM); Anion Gap 14 mmol/L; Blood Urea Nitrogen 15 mg/dL (7-17); Calcium 9.2 mg/dL (8.4-10.2); Carbon Dioxide 26 mmol/L (22-30); Chloride 101 mmol/L (98-107); Glucose 141 mg/dL (74-99); Non-African American GFR(CKD) >90 (>60 ml/min/1.73 sqM); Potassium 4.1 mmol/L (3.5-5.1); Sodium 141 mmol/L (137-145)
[2021-10-25] MEDS: MONTELUKAST 10 MG TAB PO SCH (08:41)
[2021-10-25] MEDS: ASPIRIN 81 MG PO SCH (08:41)
[2021-10-25] MEDS: ATORVASTATIN 80 MG TAB PO SCH (08:41)
[2021-10-25] MEDS: METOPROLOL SUCCINATE (ER) 25 MG TAB.ER.24H PO SCH (08:41)
[2021-10-25] MEDS: ASCORBIC ACID 500 MG TAB PO SCH (08:41)
[2021-10-25] MEDS: amLODIPine 5 MG TAB PO SCH (08:41)
[2021-10-25] MEDS: TICAGRELOR 90 MG TAB PO SCH (08:41)
[2021-10-25] MEDS: CHOLECALCIFEROL 25 MCG (1000 IU) TABLET PO SCH (08:41)
[2021-10-25] MEDS: BACLOFEN 10 MG TAB PO SCH (08:42)
[2021-10-25] MEDS: LORATADINE 10 MG TAB PO SCH (08:42)
[2021-10-25] MEDS: HYDROcodone/APAP 10-325MG 1 EACH TAB PO PRN (08:43)
[2021-10-25] MEDS: NICOTINE 14MG/24HR PATCH TRANSDERM SCH (08:44)
[2021-10-25 08:46] LABS: HCT 58.8 % (34.0-46.0)
[2021-10-25 11:43] VITALS: BP 93/64; PULSE 92; TEMP 98.1
[2021-10-25 11:54] LABS: Glucose,Whole Blood 122 mg/dL (70-110)
--- NOTE | 2021-10-25 13:05 | P.PN ---
Subjective Progress Note Date: 10/25/21 HISTORY OF PRESENT ILLNESS: This is a 56-year-old female who underwent cardiac catheterization with Dr. King revealing coronary artery disease including tandem 99% and 70% RCA stenosis. Patient also found to have stenosis of LAD and circumflex. Patient underwent stenting of the RCA [address] Wilkerson. Patient examined this morning at the bedside. Patient denies any chest pain or pressure. She denies any shortness of breath. She reports an occasional cough. Patient is a 1.5-2 PPD smoker. She feels like her breathing is better today than it usually is. WBC today 17.6. Patient is afebrile. Vital signs are stable. 10/25/2021 Patient examined this morning at the bedside. Patient denies chest pain or pressure. She denies shortness of breath. Vital signs are stable. Patient's WBC is 12.9. Patient states she was told in the past that her white blood cell count is always elevated and she was referred to hematology but states she has not seen anyone yet. Patient is afebrile. Vital signs are stable. Blood pressure 104/64 PHYSICAL EXAM: VITAL SIGNS: Reviewed. GENERAL: Well-developed in no acute distress. NECK: Supple. No JVD or thyromegaly LUNGS: Respirations even and unlabored. Lungs diminished with expiratory wheezing and scattered rhonchi. HEART: Regular rate and rhythm. S1 and S2 heard. EXTREMITIES: Normal range of motion. No clubbing or cyanosis. Peripheral pulses intact. No lower extremity edema ASSESSMENT: Non-STEMI, status post RCA stenting Leukocytosis Hypertension Hyperlipidemia Diabetes COPD Nicotine dependence PLAN: Continue current cardiac medications Continue dual antiplatelet therapy Strongly advised patient to stop smoking Patient will have staged PCI of LAD and circumflex in the next 1-2 weeks Patient may be discharged home from a cardiac standpoint and follow up in the office Nurse practitioner note has been reviewed by physician. Signing provider agrees with the documented findings, assessment, and plan of care. Objective - Vital Signs Vital signs: Vital Signs Temp 98.1 F 10/25/21 11:42 Pulse 92 10/25/21 11:42 Resp 20 10/25/21 11:42 BP 93/64 10/25/21 11:42 Pulse Ox 92 L 10/25/21 08:00 FiO2 Intake & Output 10/24/21 10/25/21 10/25/21 18:59 06:59 18:59 Intake Total 200 Balance 200 Weight 110.223 kg Intake: Oral 200 Other: Voiding Method Toilet Toilet # Voids 1 2 1 - Labs CBC & Chem 7: 10/25/21 06:56 10/25/21 06:56 Labs: Abnormal Lab Results - Last 24 Hours (Table) 10/24/21 10/24/21 10/25/21 Range/Units 16:50 20:15 05:45 WBC (3.8-10.6) k/uL RBC (3.80-5.40) m/uL Hgb (11.4-16.0) gm/dL Hct (34.0-46.0) % Neutrophils # (1.3-7.7) k/uL Glucose (74-99) mg/dL POC Glucose (mg/dL) 136 H 147 H 147 H (70-110) mg/dL 10/25/21 10/25/21 10/25/21 Range/Units 06:56 06:56 11:52 WBC 12.9 H (3.8-10.6) k/uL RBC 6.31 H (3.80-5.40) m/uL Hgb 18.8 H (11.4-16.0) gm/dL Hct 58.8 H* (34.0-46.0) % Neutrophils # 10.2 H (1.3-7.7) k/uL Glucose 141 H (74-99) mg/dL POC Glucose (mg/dL) 122 H (70-110) mg/dL
== END 2021-10-25 14:41 | disposition home or self-care (01) | DRG 247 ==
LOC: 3SCARD 08:55
PROVIDERS: ADMIT Internal Medicine; ATTEND Internal Medicine
PROC: B2111ZZ Fluoroscopy of Multiple Coronary Arteries using Low Osmolar Contrast (ICD-10-PCS; 2021-10-23)
PROC: B2151ZZ Fluoroscopy of Left Heart using Low Osmolar Contrast (ICD-10-PCS; 2021-10-23)
PROC: 4A023N7 Measurement of Cardiac Sampling and Pressure, Left Heart, Percutaneous Approach (ICD-10-PCS; 2021-10-23 15:30)
PROC: 027035Z Dilation of Coronary Artery, One Artery with Two Drug-eluting Intraluminal Devices, Percutaneous Approach (ICD-10-PCS; principal; 2021-10-24)
DX: I21.4 Non-ST elevation (NSTEMI) myocardial infarction (principal); E11.9 Type 2 diabetes mellitus without complications; E66.01 Morbid (severe) obesity due to excess calories; I10 Essential (primary) hypertension; J44.9 Chronic obstructive pulmonary disease, unspecified; D72.829 Elevated white blood cell count, unspecified; E78.5 Hyperlipidemia, unspecified; I25.10 Atherosclerotic heart disease of native coronary artery without angina pectoris; I21.19 ST elevation (STEMI) myocardial infarction involving other coronary artery of inferior wall; G89.29 Other chronic pain; M54.9 Dorsalgia, unspecified; M19.90 Unspecified osteoarthritis, unspecified site; M41.9 Scoliosis, unspecified; M25.551 Pain in right hip; F17.210 Nicotine dependence, cigarettes, uncomplicated; Z79.84 Long term (current) use of oral hypoglycemic drugs; Z79.899 Other long term (current) drug therapy; Z79.51 Long term (current) use of inhaled steroids; Z88.8 Allergy status to other drugs, medicaments and biological substances; Z82.49 Family history of ischemic heart disease and other diseases of the circulatory system; Z95.5 Presence of coronary angioplasty implant and graft
CPT/HCPCS: 71045; 80048; 83036; 83735; 84145; 85025; 85610; 93458; 94640; 94760

== ENCOUNTER 2021-11-09 08:50 | Day surgery (SDC) | payer OTHER ==
[2021-11-07 16:15] VITALS: BMI 41.6
[~2021-11-09 08:50] MED LIST: ALPRAZolam 0.25 MG TAB PO PRN; ALPRAZolam 0.5 MG TAB PO PRN; ASPIRIN 325 MG TAB PO ONE; ATORVASTATIN 80 MG TAB PO ONE; HEPARIN SODIUM,PORCINE 10,000 UNIT in SODIUM CHLORIDE 0.9% 1,000 ML IRRIGATION PRN; HEPARIN SODIUM,PORCINE 2,500 UNIT in SODIUM CHLORIDE 0.9% 250 ML IRRIGATION PRN; NITROGLYCERIN SL TABS 0.4 MG TAB SUBLINGUAL PRN
[2021-11-09 09:26] LABS: Glucose,Whole Blood 139 mg/dL (70-110)
[2021-11-09] MEDS ORDERED: SODIUM CHLORIDE 0.9% 1,000 ML IV ONE (09:30)
[2021-11-09 09:32] VITALS: RESP 16; TEMP 98.3
[2021-11-09 09:46] LABS: Basophils # (A) 0.1 k/uL (0-0.2); Basophils % (A) 0 %; Eosinophils # (A) 0.2 k/uL (0-0.7); Eosinophils % (A) 1 %; HCT 53.6 % (34.0-46.0); HGB 17.1 gm/dL (11.4-16.0); Lymphocytes # (A) 2.2 k/uL (1.0-4.8); Lymphocytes % (A) 19 %; MCH 29.2 pg (25.0-35.0); MCHC 31.9 g/dL (31.0-37.0); MCV 91.5 fL (80.0-100.0); Monocytes # (A) 0.4 k/uL (0-1.0); Monocytes % (A) 4 %; Neutrophils # (A) 8.7 k/uL (1.3-7.7); Neutrophils % (A) 74 %; Platelet Count 241 k/uL (150-450); RBC 5.86 m/uL (3.80-5.40); RDW 14.8 % (11.5-15.5); WBC 11.6 k/uL (3.8-10.6)
[2021-11-09] MEDS ORDERED: fentaNYL (PF) 50 MCG/ML 2 ML AMP ONE (10:05)
[2021-11-09] MEDS ORDERED: VERAPAMIL 2.5 MG/ML 2 ML AMP ONE (10:05)
[2021-11-09] MEDS: MIDAZOLAM 2 MG/2 ML VIAL IV ONE ×2 (10:36→10:46)
[2021-11-09] MEDS ORDERED: fentaNYL (PF) 50 MCG/ML 2 ML AMP IV ONE ×2 (10:36→10:56)
[2021-11-09] MEDS ORDERED: LIDOCAINE 1% INJ 10MG/ML (30 ML VIAL-PF) SQ ONE (10:51)
[2021-11-09] MEDS ORDERED: VERAPAMIL SYRINGE (5 MG/10 ML) INTRAARTER ONE (10:53)
[2021-11-09] MEDS: HEPARIN SODIUM 1,000 UN/ML (10ML VL) IV ONE ×2 (10:57→11:20)
[2021-11-09] MEDS ORDERED: MIDAZOLAM 2 MG/2 ML VIAL IV ONE (10:57)
[2021-11-09] MEDS ORDERED: HEPARIN SODIUM 1,000 UN/ML (10ML VL) ONE (11:08)
[2021-11-09] MEDS: NITROGLYCERIN 1000MCG/10ML SYRINGE INTRAARTER ONE ×2 (11:17→11:19)
[2021-11-09] MEDS ORDERED: IOPAMIDOL-370 125ML BTL INJ ONE ×2 (11:23→11:43)
[2021-11-09] MEDS ORDERED: ADENOSINE 90 MG in SODIUM CHLORIDE 0.9% 60 ML IVP ONE (11:36)
[2021-11-09] MEDS ORDERED: IOPAMIDOL-370 100ML BTL INJ ONE (11:44)
[2021-11-09] MEDS ORDERED: NITROGLYCERIN SL TABS 0.4 MG TAB SUBLINGUAL PRN (11:51)
[2021-11-09] MEDS ORDERED: HYDROcodone/APAP 10-325MG 1 EACH TAB PO PRN (11:51)
[2021-11-09] MEDS ORDERED: ALBUTEROL NEBULIZED 2.5 MG/3 ML INHALATION PRN (11:51)
[2021-11-09] MEDS ORDERED: ZOLPIDEM 5 MG TAB PO PRN (11:58)
[2021-11-09] MEDS ORDERED: MAG HYDROX/AL HYDROX/SIMETH 30 ML CUP PO PRN (11:58)
[2021-11-09] MEDS ORDERED: ATROPINE SULFATE 0.1 MG/ML 10ML SYRINGE IV PRN (11:58)
[2021-11-09] MEDS ORDERED: RX INFO: IV CONTRAST WAS GIVEN 1 EACH MISC MISCELLANE PRN (11:58)
[2021-11-09] MEDS ORDERED: SODIUM CHLORIDE 0.9% 1,000 ML in EMPTY BAG 1 BAG IV SCH (12:00)
[2021-11-09 16:18] VITALS: BP 123/81; PULSE 64
--- NOTE | 2021-11-09 18:02 | P.PRCINT ---
Percutaneous Coronary Int. - Percutaneous Coronary Intervention Percutaneous Coronary Intervention: PROCEDURES PERFORMED: Left heart catheterization, bilateral coronary angiography, PCI mid circumflex with 3.5 x 18 mm Xience TIMMY, postdilated with a 4.0 noncompliant balloon, iFR/FFR of proximal LAD INDICATION: Staged PCI CONSENT:I have discussed the risks, benefits and alternative therapies for the above-mentioned procedure and for both sedation/analgesia as well as necessary blood product administration, if indicated, as they pertain to this patient. The patient has indicated understanding and acceptance of the risks and procedures discussed. PROCEDURE: After the risks, benefits and alternatives of the above mentioned procedure explained in detail with the patient, informed consent was obtained. Patient was taken to the catheterization lab and prepped and draped in usual fashion. 1% lidocaine was used to anesthetize the right radial artery. A 6- [place] sheath was placed in the right radial artery using modified Seldinger technique. Right coronary angiography was performed with a 5-[place] JR5 cat heter in various views. A 5-[place] FR5 catheter was inserted into the left ventricle and pressure measurements were obtained. The decision was made to perform PCI of the circumflex. Heparin was given for ACT greater than 250. A 6-[place] CLS 3.5 guide was using gauge the left main. A 0.014 BMW wire was advanced into the distal circumflex. Predilation was performed with a 3.0 x 12 mm balloon. Next a 3.5 x 18 mm Xience TIMMY was deployed in the mid circumflex. The middle of the stent was postdilated with a 4.0 x 12 mm noncompliant balloon. Pre intervention there was any 5% stenosis and ELIN-3 flow and postintervention there was 0% stenosis and ELIN-3 flow. Next the decision was made to perform iFR of the LAD as this appeared to be moderate to severe, 60-70% stenosis. A 0.014 iFR wire was advanced into the proximal left main and normalize. This was then advanced 1 cm distal to the LAD lesion and iFR was performed and was normal at 0.97. Next FFR was performed with infusion of adenosine which was normal at 0.83 after 2 minutes. Therefore the decision was made to treat this medically. The right radial sheath was removed and a TR band was placed with hemostasis achieved. The patient tolerated the procedure well. Patient was transported back to the post catheterization holding area in stable condition. Conscious Sedation: Patient was monitored under the direct supervision of vision of myself for conscious sedation using Versed and fentanyl for a total duration of 55 minutes HEMODYNAMICS: Aorta: 122/67 LV: 118/1, LVEDP 5 SELECTIVE CORONARY ARTERIOGRAPHY: LEFT MAIN: The left main is a large caliber vessel which bifurcates into the LAD and circumflex. There is no significant stenosis. LEFT ANTERIOR DESCENDING CORONARY ARTERY: LAD is a large caliber vessel which wraps around to the apex. There is a proximal LAD 60-70% stenosis and otherwise mild luminal irregularities of the LAD. LEFT CIRCUMFLEX CORONARY ARTERY: Left circumflex is a large caliber vessel with a mid 95% circumflex stenosis. Otherwise there are mild luminal irregularities. RIGHT CORONARY ARTERY: The right coronary artery is a large caliber vessel which gives off a PDA and PLV branch and is the dominant vessel. There is a patent mid and distal RCA stent and otherwise mild luminal irregularities. FINAL IMPRESSION: 1. Coronary artery disease as described above including 60-70% proximal LAD stenosis, 95% mid circumflex stenosis, patent RCA stents. 2. PCI mid circumflex with 3.5 x 18 mm Xience TIMMY, postdilated with a 4.0 noncompliant balloon 3. iFR/FFR LAD normal 4. Low- normal left sided filling pressures PLAN: 1. Aggressive risk factor modification per most recent ACC/AHA guidelines. 2. Continue dual antiplatelets with aspirin and Plavix for 12 months. 3. Given normal iFR/FFR treat LAD medically unless patient has recurrent chest pain episodes.
[2021-11-09] MEDS ORDERED: BACLOFEN 10 MG TAB PO SCH (21:00)
[2021-11-09] MEDS ORDERED: NON FORMULARY DRUG (Turmeric Root Extract [Turmeric] 500 MG Tablet) PO SCH (21:00)
[2021-11-09] MEDS ORDERED: TICAGRELOR 90 MG TAB PO SCH (21:00)
[2021-11-10] MEDS ORDERED: PANTOPRAZOLE 40 MG TABLET PO SCH (07:30)
[2021-11-10] MEDS ORDERED: SYMBICORT 160-4.5 MCG INHALER INHALATION SCH (08:00)
[2021-11-10] MEDS ORDERED: LORATADINE 10 MG TAB PO SCH (09:00)
[2021-11-10] MEDS ORDERED: METOPROLOL SUCCINATE (ER) 25 MG TAB.ER.24H PO SCH (09:00)
[2021-11-10] MEDS ORDERED: CHOLECALCIFEROL 25 MCG (1000 IU) TABLET PO SCH (09:00)
[2021-11-10] MEDS ORDERED: ASPIRIN 81 MG PO SCH (09:00)
[2021-11-10] MEDS ORDERED: lisinopriL 5 MG TAB PO SCH (09:00)
[2021-11-10] MEDS ORDERED: amLODIPine 5 MG TAB PO SCH (09:00)
[2021-11-10] MEDS ORDERED: ASCORBIC ACID 500 MG TAB PO SCH (09:00)
[2021-11-10] MEDS ORDERED: MONTELUKAST 10 MG TAB PO SCH (09:00)
[2021-11-10] MEDS ORDERED: ATORVASTATIN 80 MG TAB PO SCH (09:00)
== END 2021-11-09 17:01 | disposition home or self-care (01) ==
LOC: CATHCVL 08:50
PROVIDERS: ATTEND Internal Medicine
DX: I25.10 Atherosclerotic heart disease of native coronary artery without angina pectoris (principal); I10 Essential (primary) hypertension; E78.2 Mixed hyperlipidemia; Z87.891 Personal history of nicotine dependence; Z95.5 Presence of coronary angioplasty implant and graft; E11.9 Type 2 diabetes mellitus without complications; Z82.49 Family history of ischemic heart disease and other diseases of the circulatory system; Z20.822 Contact with and (suspected) exposure to COVID-19; Z79.82 Long term (current) use of aspirin; Z79.899 Other long term (current) drug therapy; Z79.84 Long term (current) use of oral hypoglycemic drugs; Z79.02 Long term (current) use of antithrombotics/antiplatelets
CPT/HCPCS: 93571; 93458; 85025; 87635; C1769 ×3; C9600; C1887; C1894; C1725 ×2; C1874; J2250; J2001; J3010; J1644; J0153; Q9967 ×2

== ENCOUNTER 2021-12-01 08:37 | Emergency (ER) | payer OTHER ==
[2021-12-01 08:42] VITALS: TEMP 98.3
[2021-12-01] MEDS ORDERED: ORPHENADRINE 30 MG/ML 2 ML VIAL IVP STA (09:06)
[2021-12-01] MEDS ORDERED: KETOROLAC 15 MG/ML 1 ML VIAL IVP STA (09:06)
[2021-12-01] MEDS ORDERED: DEXAMETHASONE SOD PHOSPHATE 10 MG/ML 1 ML VIAL IVP STA (09:06)
[2021-12-01 09:41] LABS: Basophils # (A) 0.1 k/uL (0-0.2); Basophils % (A) 0 %; Eosinophils # (A) 0.2 k/uL (0-0.7); Eosinophils % (A) 1 %; HCT 49.6 % (34.0-46.0); HGB 15.6 gm/dL (11.4-16.0); Lymphocytes % (A) 15 %; MCH 28.8 pg (25.0-35.0); MCHC 31.4 g/dL (31.0-37.0); MCV 91.8 fL (80.0-100.0); Mean Platelet Volume 8.3; Monocytes # (A) 0.6 k/uL (0-1.0); Monocytes % (A) 4 %; Neutrophils # (A) 10.3 k/uL (1.3-7.7); Neutrophils % (A) 78 %; Platelet Count 238 k/uL (150-450); RDW 15.1 % (11.5-15.5); WBC 13.3 k/uL (3.8-10.6)
[2021-12-01 09:54] LABS: ALT 93 U/L (4-34); AST 64 U/L (14-36); African American GFR (CKD) >90 (>60 ml/min/1.73 sqM); Albumin 4.1 g/dL (3.5-5.0); Alkaline Phosphatase 99 U/L (38-126); Anion Gap 10 mmol/L; Blood Urea Nitrogen 25 mg/dL (7-17); Calcium 9.2 mg/dL (8.4-10.2); Carbon Dioxide 27 mmol/L (22-30); Chloride 103 mmol/L (98-107); Glucose 143 mg/dL (74-99); Magnesium 1.8 mg/dL (1.6-2.3); Non-African American GFR(CKD) >90 (>60 ml/min/1.73 sqM); Potassium 4.4 mmol/L (3.5-5.1); Sodium 140 mmol/L (137-145); Total Bilirubin 0.5 mg/dL (0.2-1.3); Total Protein 6.7 g/dL (6.3-8.2)
--- NOTE | 2021-12-01 09:56 | XR ---
EXAMINATION TYPE: XR chest 2V DATE OF EXAM: 12/01/2021 COMPARISON: 10/23/2021 HISTORY: Shortness of breath TECHNIQUE: Frontal and lateral views of the chest are obtained. FINDINGS: Scattered senescent parenchymal changes noted. Hyperinflation compatible with COPD. Developing infiltrate right lower lobe. Heart size is stable. Mediastinal structures are stable and grossly unremarkable. No evidence for hilar prominence. Degenerative changes dorsal spine. IMPRESSION: 1. Increased density right lower lobe may reflect developing pneumonia. Correlate clinically.
[2021-12-01 10:00] LABS: INR 0.9 (<1.2); Partial Thromboplastin Time 23.6 sec (22.0-30.0); Prothrombin Time 9.8 sec (9.0-12.0)
--- NOTE | 2021-12-01 10:19 | ED ---
Neck Injury/Pain HPI - General Chief Complaint: Neck Pain/Injury Stated Complaint: Neck pain,high BP Time Seen by Provider: 12/01/21 08:42 Source: patient, RN notes reviewed Mode of arrival: ambulatory Limitations: no limitations - History of Present Illness Initial Comments: This is a 56-year-old female who presents to the emergency department for right- sided neck pain. She would describe this as a stiffness that is not getting better with [place] or baclofen. Symptoms have been present and worsening over the last 4 days. Believes that this is due to an upper respiratory infection. Yesterday, she began to feel lightheaded and is starting to have mild chest pain. Additionally, she reports a productive cough and shortness of breath. Denies any fevers/chills or sick contacts. Denies any fevers, chills, sore throat, palpitations, abdominal pain, nausea, vomiting, diarrhea, back pain, or headaches. MD Complaint: neck pain Onset/Timin -: days(s) Treatments Prior to Arrival: prescription pain med - Related Data Home Medications Medication Instructions Recorded Confirmed Albuterol Sulfate [Proair Hfa] 2 puff INHALATION RT-Q6H PRN 10/23/21 11/09/21 Ascorbic Acid [Vitamin C] 500 mg PO DAILY 10/23/21 11/09/21 Baclofen 10 mg PO BID 10/23/21 11/09/21 Budesonide-Formot 160-4.5 Mcg 2 puff INHALATION RT-DAILY 10/23/21 11/09/21 [Symbicort 160-4.5 Mcg Inhaler] Cholecalciferol [Vitamin D3 (25 25 mcg PO DAILY 10/23/21 11/09/21 Mcg = 1000 Iu)] HYDROcodone/APAP 10-325MG [[place] 1 tab PO QID PRN 10/23/21 11/09/21 10-325] Loratadine [Claritin] 10 mg PO DAILY 10/23/21 11/09/21 Montelukast [Singulair] 10 mg PO DAILY 10/23/21 11/09/21 Omeprazole 20 mg PO DAILY 10/23/21 11/09/21 Rosuvastatin Calcium [Crestor] 40 mg PO DAILY 10/23/21 11/09/21 Turmeric Root Extract [Turmeric] 500 mg PO BID 10/23/21 11/09/21 metFORMIN HCL 500 mg PO DAILY@1500 10/23/21 11/09/21 Aspirin 81 mg PO DAILY 11/09/21 11/09/21 Previous Rx's Medication Instructions Recorded Metoprolol Succinate (ER) [Toprol 25 mg PO DAILY #30 tab 10/25/21 XL] Nitroglycerin Sl Tabs [Nitrostat] 0.4 mg SUBLINGUAL Q5M PRN #30 tab 10/25/21 Ticagrelor [Brilinta] 90 mg PO BID 30 Days #60 tab 10/25/21 lisinopriL [Zestril] 5 mg PO DAILY #90 tab 11/09/21 Levofloxacin [Levaquin] 750 mg PO DAILY 5 Days #5 tab 12/01/21 Orphenadrine [Norflex] 100 mg PO Q12H PRN #15 tab 12/01/21 predniSONE 50 mg PO QAM 5 Days #5 tablet 12/01/21 Allergies Allergy/AdvReac Type Severity Reaction Status Date / Time metoclopramide [From Reglan] Allergy Confusion Verified 12/01/21 08:41 Review of Systems ROS Statement: Those systems with pertinent positive or pertinent negative responses have been documented in the HPI. ROS Other: All systems not noted in ROS Statement are negative. Past Medical History Past Medical History: GERD/Reflux, Hyperlipidemia, Hypertension, Myocardial Infarction ([place]), Musculoskeletal Disorder, Thyroid Disorder Additional Past Medical History / Comment(s): See Dr Ervin's H&P. Scoliosis, bulging/herniated discs in back, chronic right hip pain for multiple years. Thy roid nodule. Last Myocardial Infarction Date:: 10/22/21 History of Any Multi-Drug Resistant Organisms: None Reported Past Surgical History: Heart Catheterization With Stent Additional Past Surgical History / Comment(s): Colonoscopy with hemorrhoid banding, hand surgery, 2 cardiac stents. Past Anesthesia/Blood Transfusion Reactions: No Reported Reaction Date of Last Stent Placement:: 10/23/2021 Past Psychological History: No Psychological Hx Reported Smoking Status: Former smoker Past Alcohol Use History: None Reported Past Drug Use History: Marijuana - Past Family History Sister(s) Family Medical History: Cancer, Deep Vein Thrombosis (DVT) Additional Family Medical History / Comment(s): Pancreatic cancer. General Exam Limitations: no limitations General appearance: alert, in no apparent distress Head exam: Present: atraumatic, normocephalic, normal inspection Neck exam: Present: normal inspection. Absent: tenderness, meningismus, full ROM (secondary to pain), lymphadenopathy Respiratory exam: Present: rales, decreased breath sounds, prolonged expiratory Cardiovascular Exam: Present: regular rate, normal rhythm, normal heart sounds. Absent: systolic murmur, diastolic murmur, rubs, gallop, clicks Neurological exam: Present: alert, oriented X3, CN II-XII intact Psychiatric exam: Present: normal affect, normal mood Skin exam: Present: warm, dry, intact, normal color. Absent: rash Course Vital Signs 12/01/21 12/01/21 08:39 11:44 Temperature 98.3 F Pulse Rate 83 65 Respiratory 18 16 Rate Blood Pressure 141/90 147/94 O2 Sat by Pulse 96 95 Oximetry Medical Decision Making - Medical Decision Making This is a 56-year-old female who presents to the emergency department for neck pain, a cough, and chest pain. Chest x-ray obtained revealing an increased density in the right lower lobe suggestive of a developing pneumonia. Leukocytosis is evident on lab work. Lab work does also reveal a mildly elevated d-dimer. CTA of the chest was subsequently obtained, which did not identify any signs of pulmonary embolus. COVID is negative. Patient was given IV Toradol, Decadron, and Norflex. She noted significant relief to the neck after medication administration. She was given a one-time dose of Levaquin in the emergency department. Prescription for 5 day course of Levaquin was provided as well as a 5 day course of prednisone and Norflex to help with the neck pain and stiffness. She is instructed to avoid taking the baclofen if she uses the Norflex, as it will be too sedating. Return precautions reviewed in depth, the patient is instructed to return to the emergency department with any new, worsening, or concerning symptoms. Patient verbalized understanding. This case was discussed in detail with the attending ED physician. Presentation, findings, and treatment plan discussed in detail as well. - Lab Data Result diagrams: 12/01/21 09:11 12/01/21 09:11 Lab Results 12/01/21 12/01/21 12/01/21 Range/Units 09:11 09:11 09:11 WBC 13.3 H (3.8-10.6) k/uL RBC 5.40 (3.80-5.40) m/uL Hgb 15.6 (11.4-16.0) gm/dL Hct 49.6 H (34.0-46.0) % MCV 91.8 (80.0-100.0) fL MCH 28.8 (25.0-35.0) pg MCHC 31.4 (31.0-37.0) g/dL RDW 15.1 (11.5-15.5) % Plt Count 238 (150-450) k/uL MPV 8.3 Neutrophils % 78 % Lymphocytes % 15 % Monocytes % 4 % Eosinophils % 1 % Basophils % 0 % Neutrophils # 10.3 H (1.3-7.7) k/uL Lymphocytes # 2.0 (1.0-4.8) k/uL Monocytes # 0.6 (0-1.0) k/uL Eosinophils # 0.2 (0-0.7) k/uL Basophils # 0.1 (0-0.2) k/uL PT 9.8 (9.0-12.0) sec INR 0.9 (<1.2) APTT 23.6 (22.0-30.0) sec D-Dimer 0.69 H (<0.60) mg/L FEU Sodium 140 (137-145) mmol/L Potassium 4.4 (3.5-5.1) mmol/L Chloride 103 (98-107) mmol/L Carbon Dioxide 27 (22-30) mmol/L Anion Gap 10 mmol/L BUN 25 H (7-17) mg/dL Creatinine 0.71 (0.52-1.04) mg/dL Est GFR (CKD-EPI)AfAm >90 (>60 ml/min/1.73 sqM) Est GFR (CKD-EPI)NonAf >90 (>60 ml/min/1.73 sqM) Glucose 143 H (74-99) mg/dL Calcium 9.2 (8.4-10.2) mg/dL Magnesium 1.8 (1.6-2.3) mg/dL Total Bilirubin 0.5 (0.2-1.3) mg/dL AST 64 H (14-36) U/L ALT 93 H (4-34) U/L Alkaline Phosphatase 99 (38-126) U/L Troponin I (0.000-0.034) ng/mL Total Protein 6.7 (6.3-8.2) g/dL Albumin 4.1 (3.5-5.0) g/dL Coronavirus (PCR) (Not Detectd) 12/01/21 12/01/21 Range/Units 09:11 09:11 WBC (3.8-10.6) k/uL RBC (3.80-5.40) m/uL Hgb (11.4-16.0) gm/dL Hct (34.0-46.0) % MCV (80.0-100.0) fL MCH (25.0-35.0) pg MCHC (31.0-37.0) g/dL RDW (11.5-15.5) % Plt Count (150-450) k/uL MPV Neutrophils % % Lymphocytes % % Monocytes % % Eosinophils % % Basophils % % Neutrophils # (1.3-7.7) k/uL Lymphocytes # (1.0-4.8) k/uL Monocytes # (0-1.0) k/uL Eosinophils # (0-0.7) k/uL Basophils # (0-0.2) k/uL PT (9.0-12.0) sec INR (<1.2) APTT (22.0-30.0) sec D-Dimer (<0.60) mg/L FEU Sodium (137-145) mmol/L Potassium (3.5-5.1) mmol/L Chloride (98-107) mmol/L Carbon Dioxide (22-30) mmol/L Anion Gap mmol/L BUN (7-17) mg/dL Creatinine (0.52-1.04) mg/dL Est GFR (CKD-EPI)AfAm (>60 ml/min/1.73 sqM) Est GFR (CKD-EPI)NonAf (>60 ml/min/1.73 sqM) Glucose (74-99) mg/dL Calcium (8.4-10.2) mg/dL Magnesium (1.6-2.3) mg/dL Total Bilirubin (0.2-1.3) mg/dL AST (14-36) U/L ALT (4-34) U/L Alkaline Phosphatase (38-126) U/L Troponin I 0.016 (0.000-0.034) ng/mL Total Protein (6.3-8.2) g/dL Albumin (3.5-5.0) g/dL Coronavirus (PCR) Not Detected (Not Detectd) Sinus bradycardia with sinus arrhythmia. Ventricular rate 57 bpm, AK interval 186 ms, QRS duration 95 ms, QTC 427 ms. - Radiology Data Radiology results: report reviewed, image reviewed Disposition Clinical Impression: Pneumonia Disposition: HOME SELF-CARE Instructions (If sedation given, give patient instructions): Cervical Strain (ED), Pneumonia (ED) Additional Instructions: Return to the emergency department with any new, worsening, or concerning symptoms. Take the antibiotic as prescribed for 5 days. Take the prednisone daily for 5 days as well. Take either the Norflex or the baclofen, do not take them together as it will be too sedating. Follow-up with your primary care provider next week for reevaluation of symptoms. Prescriptions: Levofloxacin [Levaquin] 750 mg PO DAILY 5 Days #5 tab Orphenadrine [Norflex] 100 mg PO Q12H PRN #15 tab PRN Reason: Pain predniSONE 50 mg PO QAM 5 Days #5 tablet Is patient prescribed a controlled substance at d/c from ED?: No Referrals: Tanya Bonilla [Primary Care Provider] - 1-2 days
--- NOTE | 2021-12-01 11:02 | CT ---
EXAMINATION TYPE: CT chest angio for PE DATE OF EXAM: 12/01/2021 COMPARISON: None HISTORY: Shortness of breath, elevated d-dimer, high blood pressure CT DLP: 855.9 mGycm CONTRAST: CT chest with contrast and 3D reconstruction with MIP imaging is performed with IV Contrast, patient injected with 100 mL of Isovue 370. Contrast-enhanced CT of the chest was performed through the course of the pulmonary arteries with khoi g and mediastinal window settings submitted. 3D reconstruction with MIP imaging was also performed. PULMONARY ARTERIES: The pulmonary arteries and their major tributaries are patent. I do not see yuan dence for sizable filling defect to suggest pulmonary embolic process. LUNGS: The lungs are clear and free of infiltrate. No evidence for atelectasis. 5 mm pulmonary nodule right upper lobe. Follow-up in one year is advised. Mild emphysematous changes. No pleural effusion. MEDIASTINUM: Thoracic aorta is of normal caliber,however, evaluation is limited given timing of the contrast bolus. If there is concern for thoracic aortic pathology consider LIBIA. Correlate clinicall y . The heart is not enlarged. No evidence for mediastinal mass. No mediastinal lymph nodes greater than 1cm. HILAR STRUCTURES: No evidence for mass. No hilar lymph nodes greater than 1 cm. UPPER ABDOMEN: No significant abnormality is seen. IMPRESSION: 1. No evidence for Pulmonary embolism at this time.
[2021-12-01] MEDS ORDERED: LEVOFLOXACIN 750 MG TAB PO STA (11:23)
[2021-12-01 11:45] VITALS: BP 147/94; PULSE 65; RESP 16
== END 2021-12-01 11:45 | disposition home or self-care (01) ==
LOC: EC 08:37
DX: J18.9 Pneumonia, unspecified organism (principal); M54.2 Cervicalgia; R00.1 Bradycardia, unspecified; I49.8 Other specified cardiac arrhythmias; K21.9 Gastro-esophageal reflux disease without esophagitis; E78.5 Hyperlipidemia, unspecified; I10 Essential (primary) hypertension; I25.2 Old myocardial infarction; E07.9 Disorder of thyroid, unspecified; Z87.891 Personal history of nicotine dependence; Z20.822 Contact with and (suspected) exposure to COVID-19; Z79.899 Other long term (current) drug therapy; Z88.8 Allergy status to other drugs, medicaments and biological substances
CPT/HCPCS: 36415; 93005; 85379; 80053; 83735; 84484; 85025; 85610; 85730; 87635; 71046; 71275; 99285; 96374; 96375; J1100; J2360; J1885; Q9967

== ENCOUNTER 2021-12-06 09:21 | Emergency (ER) | payer OTHER ==
[2021-12-06 09:26] VITALS: TEMP 97.6
[2021-12-06] MEDS ORDERED: ORPHENADRINE 30 MG/ML 2 ML VIAL IVP STA (10:42)
[2021-12-06] MEDS ORDERED: methylPREDNISolone SOD SUCCI 125 MG/2 ML VIAL IV STA (10:42)
--- NOTE | 2021-12-06 11:00 | ED ---
Neck Injury/Pain HPI - General Chief Complaint: Neck Pain/Injury Stated Complaint: hypertension Time Seen by Provider: 12/06/21 10:01 Source: patient, RN notes reviewed Mode of arrival: ambulatory Limitations: no limitations - History of Present Illness Initial Comments: This is a 56-year-old female who presents to the emergency department for neck pain. I evaluated the patient here 5 days ago, she had a very thorough workup, including cardiac testing and evaluation for a pulmonary embolus, all of which was negative. She was found to have a pneumonia, and the patient noted that she tends to get neck pain with infections. She was put on a course of Levofloxacin. Her neck pain was treated with a prescription for Norflex and prednisone. States that the pain had completely resolved for 2 days, and then returned and seemed to get worse. States that she can feel it radiating into her head and down her right arm. She is not able to get comfortable. States that she called Dr. Ervin's office, her gang tailer, and he advised she come to the emergency department for reevaluation and possible CT of the head and neck. Denies any fevers, chills, sore throat, cough, dyspnea, chest pain, palpitations, abdominal pain, nausea, vomiting, or diarrhea. MD Complaint: neck pain Onset/Timin -: days(s) - Related Data Home Medications Medication Instructions Recorded Confirmed Albuterol Sulfate [Proair Hfa] 2 puff INHALATION RT-Q6H PRN 10/23/21 12/06/21 Ascorbic Acid [Vitamin C] 500 mg PO DAILY 10/23/21 12/06/21 Baclofen 10 mg PO BID 10/23/21 12/06/21 Budesonide-Formot 160-4.5 Mcg 2 puff INHALATION RT-DAILY 10/23/21 12/06/21 [Symbicort 160-4.5 Mcg Inhaler] Cholecalciferol [Vitamin D3 (25 25 mcg PO DAILY 10/23/21 12/06/21 Mcg = 1000 Iu)] HYDROcodone/APAP 10-325MG [[place] 1 tab PO QID PRN 10/23/21 12/06/21 10-325] Loratadine [Claritin] 10 mg PO DAILY 10/23/21 12/06/21 Montelukast [Singulair] 10 mg PO DAILY 10/23/21 12/06/21 Omeprazole 20 mg PO DAILY 10/23/21 12/06/21 Rosuvastatin Calcium [Crestor] 40 mg PO DAILY 10/23/21 12/06/21 Turmeric Root Extract [Turmeric] 500 mg PO BID 10/23/21 12/06/21 Aspirin EC [Ecotrin Low Dose] 81 mg PO DAILY 12/06/21 12/06/21 Nitroglycerin Sl Tabs [Nitrostat] 0.4 mg SL Q5M PRN 12/06/21 12/06/21 lisinopriL [Zestril] 2.5 mg PO DAILY 12/06/21 12/06/21 metFORMIN HCL ER [Glucophage XR] 500 mg PO DAILY@1500 12/06/21 12/06/21 Previous Rx's Medication Instructions Recorded Metoprolol Succinate (ER) [Toprol 25 mg PO DAILY #30 tab 10/25/21 XL] Ticagrelor [Brilinta] 90 mg PO BID 30 Days #60 tab 10/25/21 Orphenadrine [Norflex] 100 mg PO Q12H PRN #20 tab 12/06/21 Allergies Allergy/AdvReac Type Severity Reaction Status Date / Time metoclopramide [From Reglan] AdvReac Confusion Verified 12/06/21 13:48 Review of Systems ROS Statement: Those systems with pertinent positive or pertinent negative responses have been documented in the HPI. ROS Other: All systems not noted in ROS Statement are negative. Past Medical History Past Medical History: GERD/Reflux, Hyperlipidemia, Hypertension, Myocardial Infarction ([place]), Musculoskeletal Disorder, Thyroid Disorder Additional Past Medical History / Comment(s): See Dr Ervin's H&P. Scoliosis, bulging/herniated discs in back, chronic right hip pain for multiple years. Thyroid nodule. Last Myocardial Infarction Date:: 10/22/21 History of Any Multi-Drug Resistant Organisms: None Reported Past Surgical History: Heart Catheterization With Stent Additional Past Surgical History / Comment(s): Colonoscopy with hemorrhoid banding, hand surgery, 2 cardiac stents. Past Anesthesia/Blood Transfusion Reactions: No Reported Reaction Date of Last Stent Placement:: 10/23/2021 Past Psychological History: No Psychological Hx Reported Smoking Status: Former smoker Past Alcohol Use History: None Reported Past Drug Use History: Marijuana - Past Family History Sister(s) Family Medical History: Cancer, Deep Vein Thrombosis (DVT) Additional Family Medical History / Comment(s): Pancreatic cancer. General Exam Limitations: no limitations General appearance: alert, in no apparent distress Head exam: Present: atraumatic, normocephalic, normal inspection Neck exam: Present: normal inspection, tenderness (Right-sided). Absent: meningismus, thyromegaly Respiratory exam: Present: normal lung sounds bilaterally. Absent: respiratory distress, wheezes, rales, rhonchi, stridor Cardiovascular Exam: Present: regular rate, normal rhythm, normal heart sounds. Absent: systolic murmur, diastolic murmur, rubs, gallop, clicks Neurological exam: Present: alert, oriented X3, CN II-XII intact Psychiatric exam: Present: normal affect, normal mood Skin exam: Present: warm, dry, intact, normal color. Absent: rash Course Vital Signs 12/06/21 12/06/21 12/06/21 09:24 12:02 13:42 Temperature 97.6 F Pulse Rate 81 58 L 75 Respiratory 20 18 18 Rate Blood Pressure 161/89 118/82 139/83 O2 Sat by Pulse 97 95 99 Oximetry Medical Decision Making - Medical Decision Making This is a 56-year-old female who presents to the emergency department for neck pain. Given that the neck pain has persisted and at this point has worsened, will proceed with a computed tomography scan of the head and neck. Additiona lly, we'll recheck labs and evaluate for inflammatory markers as well. Chest x- ray obtained to evaluate the status of the patient's pneumonia. Pain treated with IV Decadron, Norflex, and Toradol, which seemed to work well for the patient the last time she was here. Computed tomography scan of the brain and C-spine identified no acute irregularities. Chest x-ray obtained revealing no acute cardiopulmonary process suggesting resolution of the pneumonia. Lab work reveals leukocytosis, which has increased compared to 5 days ago, however this is most likely related to prednisone use. Overall her workup did not identify any new acute irregularities. Advised that this may be related to a rad iculopathy or muscular strain. Refill on Norflex was provided, reminded her to avoid taking this with the baclofen. Also advised she resume taking her ibuprofen, as she states she has not done so in several months. Follow-up with Dr. Iraheta provided to reevaluate symptoms and discuss alternative treatment options. She is also instructed to follow-up with her primary care provider. Return precautions reviewed in depth, the patient is instructed to return to the emergency department with any new, worsening, or concerning symptoms. Patient verbalized understanding. This case was discussed in detail with the attending ED physician. Presentation, findings, and treatment plan discussed in detail as well. - Lab Data Result diagrams: 12/06/21 11:04 12/06/21 12:17 Lab Results 12/06/21 12/06/21 12/06/21 Range/Units 11:04 12:17 12:17 WBC 17.1 H (3.8-10.6) k/uL RBC 5.47 H (3.80-5.40) m/uL Hgb 15.5 (11.4-16.0) gm/dL Hct 48.5 H (34.0-46.0) % MCV 88.7 (80.0-100.0) fL MCH 28.3 (25.0-35.0) pg MCHC 31.9 (31.0-37.0) g/dL RDW 15.1 (11.5-15.5) % Plt Count 278 (150-450) k/uL MPV 8.1 Neutrophils % 92 % Lymphocytes % 5 % Monocytes % 2 % Eosinophils % 1 % Basophils % 0 % Neutrophils # 15.6 H (1.3-7.7) k/uL Lymphocytes # 0.9 L (1.0-4.8) k/uL Monocytes # 0.3 (0-1.0) k/uL Eosinophils # 0.2 (0-0.7) k/uL Basophils # 0.0 (0-0.2) k/uL ESR 10 (0-20) mm/hr Sodium 136 L (137-145) mmol/L Potassium 4.5 (3.5-5.1) mmol/L Chloride 101 (98-107) mmol/L Carbon Dioxide 22 (22-30) mmol/L Anion Gap 13 mmol/L BUN 23 H (7-17) mg/dL Creatinine 0.61 (0.52-1.04) mg/dL Est GFR (CKD-EPI)AfAm >90 (>60 ml/min/1.73 sqM) Est GFR (CKD-EPI)NonAf >90 (>60 ml/min/1.73 sqM) Glucose 194 H (74-99) mg/dL Calcium 9.5 (8.4-10.2) mg/dL Total Bilirubin 0.7 (0.2-1.3) mg/dL AST 54 H (14-36) U/L ALT 119 H (4-34) U/L Alkaline Phosphatase 82 (38-126) U/L Troponin I 0.017 (0.000-0.034) ng/mL C-Reactive Protein <0.5 (<1.0) mg/dL Total Protein 6.6 (6.3-8.2) g/dL Albumin 3.9 (3.5-5.0) g/dL - EKG Data EKG Comments: Sinus rhythm. Left axis deviation. Ventricular rate 79 bpm, ND interval 167 ms, QRS duration 93 ms, QTC 434 ms. - Radiology Data Radiology results: report reviewed, image reviewed Disposition Clinical Impression: Cervical strain, Cervical radiculopathy Disposition: HOME SELF-CARE Instructions (If sedation given, give patient instructions): Cervical Strain (ED), Neck Pain (ED) Additional Instructions: Return to the emergency department with any new, worsening, or concerning symptoms. Start taking ibuprofen, 800 mg, 2-3 times a day as needed for pain. Contact Dr. Iraheta's office as listed below for a follow-up appointment regarding your back and neck pain. Continue taking the Norflex as needed. Follow up with your primary care provider in 1-2 days. Prescriptions: Orphenadrine [Norflex] 100 mg PO Q12H PRN #20 tab PRN Reason: Pain Is patient prescribed a controlled substance at d/c from ED?: No Referrals: Tanya Bonilla [Primary Care Provider] - 1-2 days Gabriela Iraheta DO [Doctor of Osteopathic Medicine] - 1-2 days
[2021-12-06] MEDS ORDERED: KETOROLAC 15 MG/ML 1 ML VIAL IVP STA (11:07)
--- NOTE | 2021-12-06 11:11 | CT ---
EXAMINATION TYPE: CT brain edgar uribe DATE OF EXAM: 12/06/2021 COMPARISON: None HISTORY: Progressive head and neck pain CT DLP: 1585.[address] of the brain was performed. The ventricles, basal cisterns and sulci overlying the cerebral convexities demonstrate mild enlargem ent. There is no evidence for intracranial hemorrhage or sulcal effacement. There is decreased attenuatio n about the periventricular white matter and deep white matter of both cerebral hemispheres, compatib le with chronic small vessel ischemia. No mass effects are seen. If symptoms persist consider MRI. Osseous calvarium is intact. IMPRESSION: 1. Age related atrophic and chronic small vessel ischemic change without acute intracranial process seen at this time. CT Cervical Spine: Unenhanced CT of the cervical spine was performed with bone and soft tissue window settings submitted . Coronal and sagittal reconstruction is obtained. There is normal alignment and prevertebral soft tissues. No evidence for acute cervical fracture . Scattered degenerative disc disease and spondylosis. Biapical scarring. IMPRESSION: 1. No evidence for acute fracture or subluxation of the cervical spine.
--- NOTE | 2021-12-06 11:44 | XR ---
EXAMINATION TYPE: XR chest 2V DATE OF EXAM: 12/06/2021 COMPARISON: NONE HISTORY: Shortness of breath TECHNIQUE: Frontal and lateral views of the chest are obtained. FINDINGS: Scattered senescent parenchymal changes noted. Hyperinflation compatible with COPD. No evidence for infiltrate. No evidence for atelectasis. Heart size is stable. Mediastinal structures are stable and grossly unremarkable. No evidence for hilar prominence. Degenerative changes dorsal spine. IMPRESSION: 1. No evidence for acute pulmonary disease.
[2021-12-06 11:50] LABS: Basophils % (A) 0 %; Eosinophils # (A) 0.2 k/uL (0-0.7); Eosinophils % (A) 1 %; HCT 48.5 % (34.0-46.0); HGB 15.5 gm/dL (11.4-16.0); Lymphocytes # (A) 0.9 k/uL (1.0-4.8); Lymphocytes % (A) 5 %; MCH 28.3 pg (25.0-35.0); MCHC 31.9 g/dL (31.0-37.0); MCV 88.7 fL (80.0-100.0); Mean Platelet Volume 8.1; Monocytes # (A) 0.3 k/uL (0-1.0); Monocytes % (A) 2 %; Neutrophils # (A) 15.6 k/uL (1.3-7.7); Neutrophils % (A) 92 %; Platelet Count 278 k/uL (150-450); RBC 5.47 m/uL (3.80-5.40); RDW 15.1 % (11.5-15.5); WBC 17.1 k/uL (3.8-10.6)
[2021-12-06 12:03] VITALS: RESP 18
[2021-12-06 12:44] LABS: ALT 119 U/L (4-34); AST 54 U/L (14-36); African American GFR (CKD) >90 (>60 ml/min/1.73 sqM); Albumin 3.9 g/dL (3.5-5.0); Alkaline Phosphatase 82 U/L (38-126); Anion Gap 13 mmol/L; Blood Urea Nitrogen 23 mg/dL (7-17); C Reactive Protein <0.5 mg/dL (<1.0); Calcium 9.5 mg/dL (8.4-10.2); Carbon Dioxide 22 mmol/L (22-30); Chloride 101 mmol/L (98-107); Glucose 194 mg/dL (74-99); Non-African American GFR(CKD) >90 (>60 ml/min/1.73 sqM); Potassium 4.5 mmol/L (3.5-5.1); Sodium 136 mmol/L (137-145); Total Bilirubin 0.7 mg/dL (0.2-1.3); Total Protein 6.6 g/dL (6.3-8.2)
[2021-12-06 12:45] LABS: Erythrocyte Sedimentation Rate 10 mm/hr (0-20)
[2021-12-06 13:43] VITALS: BP 139/83; PULSE 75
== END 2021-12-06 13:52 | disposition home or self-care (01) ==
LOC: EC 09:21
DX: S16.1XXA Strain of muscle, fascia and tendon at neck level, initial encounter (principal); M54.12 Radiculopathy, cervical region; K21.9 Gastro-esophageal reflux disease without esophagitis; Z79.83 Long term (current) use of bisphosphonates; E78.5 Hyperlipidemia, unspecified; I10 Essential (primary) hypertension; I25.2 Old myocardial infarction; E07.9 Disorder of thyroid, unspecified; Z79.899 Other long term (current) drug therapy; Z87.891 Personal history of nicotine dependence; Z88.8 Allergy status to other drugs, medicaments and biological substances
CPT/HCPCS: 36415; 93005; 80053; 85652; 84484; 85025; 86140; 71046; 72125; 70450; 99284; 96374; 96375; J2360; J2930; J1885

== ENCOUNTER 2021-12-10 11:54 | Emergency (ER) | payer OTHER ==
[2021-12-10] MEDS ORDERED: KETOROLAC 15 MG/ML 1 ML VIAL IVP STA (12:25)
[2021-12-10 12:46] LABS: Basophils # (A) 0.1 k/uL (0-0.2); Basophils % (A) 1 %; Eosinophils # (A) 0.5 k/uL (0-0.7); Eosinophils % (A) 3 %; HCT 52.1 % (34.0-46.0); HGB 16.9 gm/dL (11.4-16.0); Lymphocytes # (A) 3.1 k/uL (1.0-4.8); Lymphocytes % (A) 19 %; MCH 28.6 pg (25.0-35.0); MCHC 32.4 g/dL (31.0-37.0); MCV 88.1 fL (80.0-100.0); Mean Platelet Volume 8.8; Monocytes # (A) 0.7 k/uL (0-1.0); Monocytes % (A) 4 %; Neutrophils # (A) 11.5 k/uL (1.3-7.7); Neutrophils % (A) 72 %; Platelet Count 257 k/uL (150-450); RBC 5.92 m/uL (3.80-5.40); RDW 15.6 % (11.5-15.5); WBC 15.9 k/uL (3.8-10.6)
[2021-12-10 12:53] VITALS: RESP 18
--- NOTE | 2021-12-10 13:02 | ED ---
General Adult HPI - General Chief complaint: Neck Pain/Injury Stated complaint: Neck pain,sent by PCP Time Seen by Provider: 12/10/21 12:00 Source: patient, RN notes reviewed, old records reviewed Mode of arrival: wheelchair Limitations: no limitations - History of Present Illness Initial comments: This 56-year-old female who presents emergency Department complaining of a two- week history of neck pain. Patient states she has been in the emergency dep artment twice and seen her primary multiple times she has been put on a new muscle relaxant in addition to her [place] pain medication and she has not had any relief. Patient also is on steroids for 5 days and that did not help. Patient denies any numbness or weakness. Patient denies any headache per patient's chest pain difficulty breathing or shortness of breath. Patient states she did have a CT of her head and neck. She was told they did not find anything new. Patient denies any fever chills. Patient also states that she's had no elevated white count for a while and that is being evaluated as an outpatient. Patient's expectations are that she might get an MRI the emergency department as a primary medical care doctor indicated that her and they also indicated that she might be admitted. - Related Data Home Medications Medication Instructions Recorded Confirmed Albuterol Sulfate [Proair Hfa] 2 puff INHALATION RT-Q6H PRN 10/23/21 12/10/21 Ascorbic Acid [Vitamin C] 500 mg PO DAILY 10/23/21 12/10/21 Budesonide-Formot 160-4.5 Mcg 2 puff INHALATION RT-BID 10/23/21 12/10/21 [Symbicort 160-4.5 Mcg Inhaler] Cholecalciferol [Vitamin D3 (25 25 mcg PO DAILY 10/23/21 12/10/21 Mcg = 1000 Iu)] HYDROcodone/APAP 10-325MG [[place] 1 tab PO Q6H 10/23/21 12/10/21 10-325] Loratadine [Claritin] 10 mg PO DAILY 10/23/21 12/10/21 Montelukast [Singulair] 10 mg PO DAILY 10/23/21 12/10/21 Omeprazole 20 mg PO DAILY 10/23/21 12/10/21 Rosuvastatin Calcium [Crestor] 40 mg PO DAILY 10/23/21 12/10/21 Turmeric Root Extract [Turmeric] 500 mg PO BID 10/23/21 12/10/21 Aspirin EC [Ecotrin Low Dose] 81 mg PO DAILY 12/06/21 12/10/21 Nitroglycerin Sl Tabs [Nitrostat] 0.4 mg SL Q5M PRN 12/06/21 12/10/21 metFORMIN HCL ER [Glucophage XR] 500 mg PO DAILY@1500 12/06/21 12/10/21 Calcium Carbonate/Vitamin D3 1 tab PO DAILY 12/10/21 12/10/21 [Calcium 600 mg-Vit D3 5 mcg (200 unit)] lisinopriL [Zestril] 5 mg PO DAILY 12/10/21 12/10/21 Previous Rx's Medication Instructions Recorded Metoprolol Succinate (ER) [Toprol 25 mg PO DAILY #30 tab 10/25/21 XL] Ticagrelor [Brilinta] 90 mg PO BID 30 Days #60 tab 10/25/21 Orphenadrine [Norflex] 100 mg PO Q12H PRN #20 tab 12/06/21 Ketorolac [Toradol] 10 mg PO Q6HR #15 tab 12/10/21 Allergies Allergy/AdvReac Type Severity Reaction Status Date / Time metoclopramide [From Reglan] AdvReac Confusion Verified 12/10/21 13:20 Review of Systems ROS Statement: Those systems with pertinent positive or pertinent negative responses have been documented in the HPI. ROS Other: All systems not noted in ROS Statement are negative. Past Medical History Past Medical History: Coronary Artery Disease (CAD), GERD/Reflux, Hyperlipidemia, Hypertension, Myocardial Infarction ([place]), Musculoskeletal Disorder, Thyroid Disorder Additional Past Medical History / Comment(s): See Dr Ervin's H&P. Scoliosis, bulging/herniated discs in back, chronic right hip pain for multiple years. Thyroid nodule. Last Myocardial Infarction Date:: 10/22/21 History of Any Multi-Drug Resistant Organisms: None Reported Past Surgical History: Heart Catheterization With Stent Additional Past Surgical History / Comment(s): Colonoscopy with hemorrhoid banding, hand surgery, 2 cardiac stents. Past Anesthesia/Blood Transfusion Reactions: No Reported Reaction Date of Last Stent Placement:: 10/23/2021 Past Psychological History: No Psychological Hx Reported Smoking Status: Former smoker Past Alcohol Use History: None Reported Past Drug Use History: Marijuana - Past Family History Sister(s) Family Medical History: Cancer, Deep Vein Thrombosis (DVT) Additional Family Medical History / Comment(s): Pancreatic cancer. General Exam - General Exam Comments Initial Comments: GENERAL: Patient is well-developed and well-nourished. Patient is nontoxic and well- hydrated and is in mild distress. ENT: Neck is soft and supple. No significant lymphadenopathy is noted. Oropharynx is clear. Moist mucous membranes. Patient is point tender in the trapezius muscle on the right. EYES: The sclera were anicteric and conjunctiva were pink and moist. Extraocular movements were intact and pupils were equal round and reactive to light. Eyelids were unremarkable. SKIN: Skin is clear with no lesions or rashes and otherwise unremarkable. NEUROLOGIC: Patient is alert and oriented x3. Cranial nerves II through XII are grossly intact. Motor and sensory are also intact. Normal speech, volume and content. Symmetrical smile. MUSCULOSKELETAL: Normal extremities with adequate strength and full range of motion. No lower extremity swelling or edema. LYMPHATICS: No significant lymphadenopathy is noted PSYCHIATRIC: Normal psychiatric evaluation. Limitations: no limitations Course Vital Signs 12/10/21 12/10/21 12/10/21 11:58 12:52 14:14 Temperature 98.1 F Pulse Rate 80 74 80 Respiratory 20 18 18 Rate Blood Pressure 138/74 119/74 116/93 O2 Sat by Pulse 97 97 98 Oximetry Medical Decision Making - Lab Data Result diagrams: 12/10/21 12:39 12/10/21 13:12 Lab Results 12/10/21 12/10/21 Range/Units 12:39 13:12 WBC 15.9 H (3.8-10.6) k/uL RBC 5.92 H (3.80-5.40) m/uL Hgb 16.9 H (11.4-16.0) gm/dL Hct 52.1 H (34.0-46.0) % MCV 88.1 (80.0-100.0) fL MCH 28.6 (25.0-35.0) pg MCHC 32.4 (31.0-37.0) g/dL RDW 15.6 H (11.5-15.5) % Plt Count 257 (150-450) k/uL MPV 8.8 Neutrophils % 72 % Lymphocytes % 19 % Monocytes % 4 % Eosinophils % 3 % Basophils % 1 % Neutrophils # 11.5 H (1.3-7.7) k/uL Lymphocytes # 3.1 (1.0-4.8) k/uL Monocytes # 0.7 (0-1.0) k/uL Eosinophils # 0.5 (0-0.7) k/uL Basophils # 0.1 (0-0.2) k/uL Sodium 139 (137-145) mmol/L Potassium 4.2 (3.5-5.1) mmol/L Chloride 104 (98-107) mmol/L Carbon Dioxide 22 (22-30) mmol/L Anion Gap 13 mmol/L BUN 21 H (7-17) mg/dL Creatinine 0.64 (0.52-1.04) mg/dL Est GFR (CKD-EPI)AfAm >90 (>60 ml/min/1.73 sqM) Est GFR (CKD-EPI)NonAf >90 (>60 ml/min/1.73 sqM) Glucose 155 H (74-99) mg/dL Calcium 9.1 (8.4-10.2) mg/dL Total Bilirubin 1.1 (0.2-1.3) mg/dL AST 34 (14-36) U/L ALT 67 H (4-34) U/L Alkaline Phosphatase 73 (38-126) U/L Total Protein 6.5 (6.3-8.2) g/dL Albumin 3.8 (3.5-5.0) g/dL Disposition Clinical Impression: Trapezius muscle strain, Trapezius muscle spasm Disposition: HOME SELF-CARE Condition: Good Instructions (If sedation given, give patient instructions): Cervical Strain (ED), Muscle Spasm (ED) Prescriptions: Ketorolac [Toradol] 10 mg PO Q6HR #15 tab Is patient prescribed a controlled substance at d/c from ED?: No Referrals: Doug Magaña DO [Doctor of Osteopathic Medicine] - 1-2 days Time of Disposition: 15:06
[2021-12-10 13:41] LABS: ALT 67 U/L (4-34); AST 34 U/L (14-36); African American GFR (CKD) >90 (>60 ml/min/1.73 sqM); Albumin 3.8 g/dL (3.5-5.0); Alkaline Phosphatase 73 U/L (38-126); Anion Gap 13 mmol/L; Blood Urea Nitrogen 21 mg/dL (7-17); Calcium 9.1 mg/dL (8.4-10.2); Carbon Dioxide 22 mmol/L (22-30); Chloride 104 mmol/L (98-107); Glucose 155 mg/dL (74-99); Non-African American GFR(CKD) >90 (>60 ml/min/1.73 sqM); Sodium 139 mmol/L (137-145); Total Bilirubin 1.1 mg/dL (0.2-1.3); Total Protein 6.5 g/dL (6.3-8.2)
[2021-12-10 13:54] LABS: Potassium 4.2 mmol/L (3.5-5.1)
[2021-12-10] MEDS ORDERED: HYDROmorphone 0.5 MG/0.5 ML SYRINGE IVP STA (14:49)
[2021-12-10 15:33] VITALS: BP 103/76; PULSE 77; TEMP 97.6
== END 2021-12-10 15:35 | disposition home or self-care (01) ==
LOC: EC 11:54
DX: S16.1XXA Strain of muscle, fascia and tendon at neck level, initial encounter (principal); M62.838 Other muscle spasm; I25.10 Atherosclerotic heart disease of native coronary artery without angina pectoris; K21.9 Gastro-esophageal reflux disease without esophagitis; E78.5 Hyperlipidemia, unspecified; I10 Essential (primary) hypertension; I21.9 Acute myocardial infarction, unspecified; E07.9 Disorder of thyroid, unspecified; Z87.891 Personal history of nicotine dependence; F12.90 Cannabis use, unspecified, uncomplicated; Z88.8 Allergy status to other drugs, medicaments and biological substances; Z79.82 Long term (current) use of aspirin; Z79.84 Long term (current) use of oral hypoglycemic drugs; Z79.899 Other long term (current) drug therapy; X58.XXXA Exposure to other specified factors, initial encounter
CPT/HCPCS: 99283; 96374; 96375 ×2; 36415; 80053; 85025; J3360; J1885; J1170

== ENCOUNTER → 2023-01-09 | Outpatient (CLI) | payer OTHER ==
--- NOTE | 2023-01-10 09:19 | MR ---
EXAMINATION TYPE: MR lumbar spine wo con DATE OF EXAM: 01/09/2023 COMPARISON: X-ray 12/05/2022 HISTORY: Pain TECHNIQUE: T1 and T2 axial and sagittal images of the lumbar spine are submitted. FINDINGS: There is no abnormal signal seen within the visualized spinal cord or paraspinal soft tissu es. Bilateral adrenal gland nodules are stable from previous CT scan likely on the basis of adenoma. Mild fullness of the upper margin of the left kidney is only partially included in the exam. Aorta no rmal caliber. There is a scoliotic curvature of the spine with the severe degenerative disc disease at all levels w ith vacuum disc most marked at L2-3, L3-4 and L1-L2. Significant marrow signal alteration of L2, L3, and L4 likely is discogenic. At L1-2 there is vacuum disc with circumferential disc bulging but no focal herniation or canal steno sis. Neural foramina remain patent. There is an annular tear and posterior spondylosis with disc bulg ing greater paracentrally and laterally to the right At L2-3 there is severe degenerative disc disease with circumferential disc bulging. Bulging greater laterally to the left with mild bilateral foraminal encroachment. No canal stenosis. At L3-4 there is severe degenerative disc disease with broad-based disc protrusion, ligamentum flavum hypertrophy and facet arthropathy. There is moderate central stenosis. There is moderate bilateral f oraminal approach. At L4-5 there is grade 1 anterolisthesis with diffuse disc bulging. Advanced facet arthropathy and mi ld ligamentum flavum hypertrophy. Mild central stenosis and moderate bilateral foraminal protrusion. Grade 1 anterolisthesis. At L5-S1 there is circumferential disc bulging but no focal herniation. There is mild facet arthropat hy. Neural foramina demonstrate mild to moderate right-sided encroachment secondary to a greater disc bulging laterally to the right. IMPRESSION: 1. Scoliosis with severe degenerative disc disease at all levels and grade 1 anterolisthesis L4-L5. 2. Multilevel foraminal encroachment as discussed above. 3. Multilevel disc bulging as discussed above.
== END | disposition home or self-care (01) ==
LOC: RADMRIMAIN 08:59
PROVIDERS: ATTEND Physician Assistant Medical
DX: M51.36 Other intervertebral disc degeneration, lumbar region (principal); M43.16 Spondylolisthesis, lumbar region; M41.86 Other forms of scoliosis, lumbar region
CPT/HCPCS: 72148

== ENCOUNTER → 2023-01-16 | Outpatient (CLI) | payer OTHER ==
[2023-01-16 14:51] VITALS: BP 126/90; PULSE 74; RESP 16; TEMP 98
--- NOTE | 2023-01-16 15:09 | P.PAINPG ---
PQRS Measure Charge Sheet Comment: HISTORY OF PRESENT ILLNESS: 57 yr old female w granddaughter at side presents today w severe and chronic LBP x 1 yr secondary to anterolisthesis, DDD, spondylosis and facet arthropathy without myelopathy for evaluation of MRI results. Pt states pain level is provoked at 7/10 in intensity, constant, predominantly axial, localized in the lower lumbar spine, burning in character w shooting pain towards the BLEs. Pain is provoked by standing for periods of 20 min or more. Pain is alleviated by use of a walking cane for ambulatory assistance, chiropractic treatments in 2020, physician guided home exercises 5 times weekly since Mar 2022, medications, reclining and rest. PT x 6 wks was in Mar 2022, however it provoked intractable pain and was discharged w physician guided home exercises which she has been performing 5 times weekly since Mar 2022. Oswestry axial pain score of 26. Interventional procedures include DENIES Medications include [place], Baclofen REVIEW OF ORGAN SYSTEMS: CONSTITUTIONAL: No fevers or chills. No recent weight loss. NEUROLOGICAL: + numbness and tingling along the distal extremities. No seizure disorders or headaches. MUSCULOSKELETAL: + pain PSYCHIATRIC: Denies current depression or suicidal thoughts. Physical Examinations : Constitutional : Cooperative , not in acute distress . Neurologic : Cranial nerve II to XII intact. No focal neurological deficits. Psychiatric : alert & oriented x 3. Matching mood & appropriate affect. Judgment & insight intact. Musculoskeletal : Cervical Spine Motor strength in the deltoid and biceps: Normal right side. Normal Left side Motor strength biceps and the wrist extensors: Normal right side . Normal left side Motor strength in the triceps muscle: Normal right side. Normal left side Deep tendon reflexes: Normal at the biceps. Normal at Brachioradialis. Normal at triceps Vertebral body tenderness to deep palpation over Cervical facet loading test: positive bilaterally Spurling test: positive bilaterally Neck distraction test: positive bilaterally Kali sign: positive bilaterally Lumbar spine Motor strength lower extremities ,thigh and legs 5/5 Right side , 5/5 Left side Deep tendon reflexes : Normal Knee Jerk. Normal Ankle Jerk Vertebral body tenderness over Calvert Test positive over BL L3-L4 Lumbar facet Loading Test: positive Right / positive Left Range of motion of the lumbar spine Flexion 30 degrees, extension < 10 degrees Straight Leg Raise test: Left/ Right positive at degree Kim test: positive right / positive left. Severe tenderness over the Sacroiliac joint on the Right / Left sides Gaenslen test: positive bilaterally Seated flexion test: positive bilaterally. Sacral spine : Severe tenderness over the Sacroiliac joint: right side / left side Range of motion: Flexion of the lumbar spine <60 degrees Range of motion: Extension of the lumbar spine <20 degrees Gaenslen's Test positive Juan Manuel's Test positive Kim test: positive right side / left side Thigh Thrust Test Sacral Thrust Test Imaging: MRI noncontrast of the lumbar spine from 01/09/23 review Assessment/ Plan : Lumbar DDD, Lumbar anterolisthesis Recommendation of MEG L3-L4 #1. May need a series of injections for optimal pain relief. Risks, benefits of procedure discussed and patient verbalized understanding. Protocol for discontinuation/continuation of medications surrounding procedure discussed. All questions answered. I have spent greater than 30 minutes on patient care today. Dr Law was available by phone for the evaluation of this patient. The time was used to review the medical records including relevant urine studies and Prescription history (MAPs), review of the available imaging, evaluation and examination of the patient, coordination of care with the medical staff and if applicable referring physicians, as well as creation of the medical record - Pain Location Bilateral Lower Back Non-Pharmacological Interventions: Heat, Inactivity, Position/Reposition, Sitting Pharmacological Interventions: PRN Medication PQRS Narrative: Hx Alcohol Use (MH) No Home Medications: Ambulatory Orders Albuterol Sulfate [Proair Hfa] 2 puff INHALATION RT-Q6H PRN 10/23/21 Ascorbic Acid [Vitamin C] 500 mg PO DAILY 10/23/21 Budesonide-Formot 160-4.5 Mcg [Symbicort 160-4.5 Mcg Inhaler] 2 puff INHALATION RT-BID 10/23/21 Cholecalciferol [Vitamin D3 (25 Mcg = 1000 Iu)] 25 mcg PO DAILY 10/23/21 HYDROcodone/APAP 10-325MG [[place] 10-325] 1 tab PO Q6H 10/23/21 Loratadine [Claritin] 10 mg PO DAILY 10/23/21 Montelukast [Singulair] 10 mg PO DAILY 10/23/21 Omeprazole 20 mg PO DAILY 10/23/21 Rosuvastatin Calcium [Crestor] 40 mg PO DAILY 10/23/21 Turmeric Root Extract [Turmeric] 500 mg PO BID 10/23/21 Metoprolol Succinate (ER) [Toprol XL] 25 mg PO DAILY #30 tab 10/25/21 Ticagrelor [Brilinta] 90 mg PO BID 30 Days #60 tab 10/25/21 Aspirin EC [Ecotrin Low Dose] 81 mg PO DAILY 12/06/21 Nitroglycerin Sl Tabs [Nitrostat] 0.4 mg SL Q5M PRN 12/06/21 Orphenadrine [Norflex] 100 mg PO Q12H PRN #20 tab 12/06/21 metFORMIN HCL ER [Glucophage XR] 500 mg PO DAILY@1500 12/06/21 Calcium Carbonate/Vitamin D3 [Calcium 600 mg-Vit D3 5 mcg (200 unit)] 1 tab PO DAILY 12/10/21 Ketorolac [Toradol] 10 mg PO Q6HR #15 tab 12/10/21 lisinopriL [Zestril] 5 mg PO DAILY 12/10/21 Controlled Substance Measures - Controlled Substance Measures Is patient prescribed a controlled substance at discharge?: No
== END ==
LOC: PNWHC3 14:05
PROVIDERS: ATTEND Specialist
DX: M51.36 Other intervertebral disc degeneration, lumbar region (principal); M43.16 Spondylolisthesis, lumbar region; M47.816 Spondylosis without myelopathy or radiculopathy, lumbar region; E11.9 Type 2 diabetes mellitus without complications; Z79.85 Long-term (current) use of injectable non-insulin antidiabetic drugs; Z79.84 Long term (current) use of oral hypoglycemic drugs; Z79.82 Long term (current) use of aspirin; Z88.8 Allergy status to other drugs, medicaments and biological substances
CPT/HCPCS: 99211

== ENCOUNTER 2023-04-17 08:35 | Day surgery (SDC) | payer OTHER ==
[~2023-04-17 08:35] MED LIST changes: -ALPRAZolam 0.25 MG TAB PO PRN; -ALPRAZolam 0.5 MG TAB PO PRN; -ASPIRIN 325 MG TAB PO ONE; -ATORVASTATIN 80 MG TAB PO ONE; -HEPARIN SODIUM,PORCINE 10,000 UNIT in SODIUM CHLORIDE 0.9% 1,000 ML IRRIGATION PRN; -HEPARIN SODIUM,PORCINE 2,500 UNIT in SODIUM CHLORIDE 0.9% 250 ML IRRIGATION PRN; +LACTATED RINGERS 1,000 ML IV SCH; -NITROGLYCERIN SL TABS 0.4 MG TAB SUBLINGUAL PRN
[2023-04-17 09:19] LABS: Glucose,Whole Blood 119 mg/dL (70-110)
[2023-04-17 09:28] VITALS: TEMP 98
[2023-04-17] MEDS ORDERED: methylPREDNISolone ACETATE 40 MG/ML 1 ML VIAL ONE (10:02)
[2023-04-17] MEDS ORDERED: IOPAMIDOL M200 10 ML VIAL ONE (10:02)
--- NOTE | 2023-04-17 10:08 | P.PCN ---
Date of Procedure: 04/17/23 Procedure(s) Performed: PREOPERATIVE DIAGNOSIS: 1- Lumbar Degenerative Disc Diseases 2-Lumbar spondylosis with Facet arthropathy without myelopathy. 3-lumbar spinal stenosis POSTOPERATIVE DIAGNOSIS: 1-lumbar degenerative disc disease. 2-lumbar spondylosis with facet arthropathy without myelopathy. 3-lumbar spinal stenosis. PROCEDURE 1. Lumbar epidural steroid injection under fluoroscopic guidance at the L3-4 level. (Fluoroscopy imaging was available in radiology department) 2. Lumbar epidurogram. ANESTHESIA: Lidocaine 1% 3 and then only. EBL: Minimal PROCEDURE INDICATION: The patient with low back pain and radiculitis symptoms unresponsive to conservative treatment. Fluoroscopy was used to optimize visualization of the needle placement and to maximize safety. PROCEDURE DESCRIPTION / TECHNIQUE: The patient was seen and identified in the preoperative area. Risks, benefits, complications including but not limited to infections ,bleeding ,allergic reaction to the medications ,nerve damage and not complete pain releife , and alternatives were discussed with the patient. The patient agreed to proceed with the procedure and signed the consent, and vital signs were stable. Patient was taken to the OR and time out was completed. The patient was placed in the prone position on procedure table and a pillow was placed under the abdomen to reduce lumbar lordosis. The lumbosacral area was prepped and draped in the usual sterile fashion.ere closely monitored during the procedure. Vital signs was monitered during the entire procedure. Using anterior-posterior fluoroscopy, the L3-4 interlaminar space was identified and the skin over this site was marked and then infiltrated with 1% lidocaine subcutaneously. Subsequently, a 18-gauge 6 inches long Tuohy epidural needle was inserted and advanced toward the epidural space using the ``Loss of resistance technique and guided by AP and lateral fluoroscopy. The correct needle position in the epidural space was verified with the injection of 2 mL of the water soluble contrast dye Isovue 200 contrast and observing an excellent epidurogram with the epidural spread of the dye, after negative aspiration for blood and CSF and in the absence of paresthesias. Again after negative aspiration, a 6 ml mixture containing 40 mg of Depo-medrol ( Preservetive Free ), and 2 ml of preservative free Normal Saline, and 2 ml of preservative free lidocaine 1% solution was injected and a washout of epidurogram was seen. Needle was withdrawn intact, skin was cleansed, and bandages were applied. COMPLICATIONS: None DISPOSITION / PLANS: The patient was placed in a supine position and transferred to the recovery area in a stable condition for observation. There was no evidence of lower extremity motor or sensory deficit after the procedure. Patient was discharged from the recovery room after meeting discharge criteria. Home discharge instructions were given to the patient by the staff. The patient was reexamined prior to discharge. The patient will schedule a follow up in the clinic in 2-4 weeks.
--- NOTE | 2023-04-17 10:22 | FL ---
EXAMINATION TYPE: FL guided pain mgmt statistic DATE OF EXAM: 04/17/2023 HISTORY: Fluoroscopy time Total dose area product (DAP) in uGy*m?, mGy*cm? (or similar): 0.73996 IMPRESSION: 1. Fluoroscopy time.
[2023-04-17 11:00] VITALS: BP 147/74; PULSE 74; RESP 18
== END 2023-04-17 10:36 | disposition home or self-care (01) ==
LOC: ORPAIN 08:35
PROVIDERS: ATTEND Specialist
DX: M51.16 Intervertebral disc disorders with radiculopathy, lumbar region (principal); M47.26 Other spondylosis with radiculopathy, lumbar region; M48.061 Spinal stenosis, lumbar region without neurogenic claudication; E11.9 Type 2 diabetes mellitus without complications; Z88.1 Allergy status to other antibiotic agents; Z79.84 Long term (current) use of oral hypoglycemic drugs
CPT/HCPCS: 62323; J1030; Q9966

== ENCOUNTER 2023-05-29 12:01 | Day surgery (SDC) | payer OTHER ==
[2023-05-29 12:34] LABS: Glucose,Whole Blood 151 mg/dL (70-110)
[2023-05-29 12:43] VITALS: TEMP 98
[2023-05-29] MEDS ORDERED: methylPREDNISolone ACETATE 80 MG/ML 1 ML VIAL ONE (13:28)
[2023-05-29] MEDS ORDERED: ROPIVACAINE 5MG/ML 20ML VIAL ONE (13:28)
--- NOTE | 2023-05-29 13:46 | P.PCN ---
Description of Procedure: Preprocedure diagnosis. Myofascial pain. Myofascial trigger point. Postprocedure diagnosis. As above. Procedure done. Myofascial trigger point injection with local anesthetics and steroid at 4 points. Anesthesia. Ethyl chloride spray. Local anesthetic infiltration. In the OR continuous pulse ox, EKG, blood pressure, and verbal communication was maintained with the patient. Blood loss. None. Indication. Discussed with the patient procedure, alternatives and possible complications which may include infection, bleeding, nerve damage, aggravation of pain. Patient understands and all questions were answered. Procedure note. After getting consent patient in the procedure area. Most tender points were identified and marked. A 25-gauge needle attached to syringe was introduced at the trigger points and after negative aspiration 5 mL solution are injected at each trigger point. I injected 2 trigger points in right lumber T2 &T4 levels paraspinal muscles, 2 trigger points in left lumbar T2 and T4 levels paraspinal muscles Total solution consists of 20 ml 0.5%Ropivacaine mixed with 80 mg Depomedrol. Disposition. Patient tolerated the procedure well. No complication. Discharged home in stable condition.
[2023-05-29 13:56] VITALS: BP 107/74; PULSE 77; RESP 20
== END 2023-05-29 14:04 | disposition home or self-care (01) ==
LOC: ORPAIN 12:01
PROVIDERS: ATTEND Pain Medicine Interventional Pain Medicine
DX: M79.18 Myalgia, other site (principal); E11.9 Type 2 diabetes mellitus without complications; Z79.82 Long term (current) use of aspirin; Z88.8 Allergy status to other drugs, medicaments and biological substances
CPT/HCPCS: 20552; J1040; J2795; 20553

== ENCOUNTER → 2023-06-11 | Outpatient (CLI) | payer OTHER ==
--- NOTE | 2023-06-11 14:28 | P.PAINPG ---
PQRS Measure Charge Sheet Comment: HISTORY OF PRESENT ILLNESS: A 57 yr old female w granddaughter at side presents today w severe and chronic LBP x 1 yr secondary to anterolisthesis, DDD, spondylosis and facet arthropathy without myelopathy for evaluation s/p BL TPIs L2- S1 #1. Pt states she experienced 60 % pain relief x 2 wks s/p procedure. Pt states pain level is provoked at 7 /10 in intensity, intermittent, predominantly axial, localized in the lower lumbar spine, tight in character without shooting pain. Pain is provoked by standing for periods of 20 min or more. Pain is alleviated by use of a walking cane for ambulatory assistance, chiropractic treatments in 2020, physician guided home exercises 5 times weekly since Mar 2022, medications, reclining and rest. Note: PT x 6 wks was in Mar 2022, however it provoked intractable pain and was discharged w physician guided home exercises which she has been performing 5 times weekly since Mar 2022. Oswestry axial pain score of 23. Interventional procedures include BL TPIs L2- S1 x1 Medications include [place] #120, Baclofen REVIEW OF ORGAN SYSTEMS: CONSTITUTIONAL: No fevers or chills. No recent weight loss. NEUROLOGICAL: + numbness and tingling along the distal extremities. No seizure disorders or headaches. MUSCULOSKELETAL: + pain PSYCHIATRIC: Denies current depression or suicidal thoughts. Physical Examinations : Constitutional : Cooperative , not in acute distress . Neurologic : Cranial nerve II to XII intact. No focal neurological deficits. Psychiatric : alert & oriented x 3. Matching mood & appropriate affect. Judgment & insight intact. Musculoskeletal : Cervical Spine Motor strength in the deltoid and biceps: Normal right side. Normal Left side Motor strength biceps and the wrist extensors: Normal right side . Normal left side Motor strength in the triceps muscle: Normal right side. Normal left side Deep tendon reflexes: Normal at the biceps. Normal at Brachioradialis. Normal at triceps Vertebral body tenderness to deep palpation over Cervical facet loading test: positive bilaterally Spurling test: positive bilaterally Neck distraction test: positive bilaterally Kali sign: positive bilaterally Lumbar spine Motor strength lower extremities ,thigh and legs 5/5 Right side , 5/5 Left side Deep tendon reflexes : Normal Knee Jerk. Normal Ankle Jerk Vertebral body tenderness over Calvert Test positive over Lumbar facet Loading Test: positive Right / positive Left L4-L5, L5-S1 Range of motion of the lumbar spine Flexion 30 degrees, extension < 10 degrees Taut bands w twitch response Straight Leg Raise test: Left/ Right positive at degree Kim test: positive right / positive left. Severe tenderness over the Sacroiliac joint on the Right / Left sides Gaenslen test: positive bilaterally Seated flexion test: positive bilaterally. Sacral spine : Severe tenderness over the Sacroiliac joint: right side / left side Range of motion: Flexion of the lumbar spine <60 degrees Range of motion: Extension of the lumbar spine <20 degrees Gaenslen's Test positive Juan Manuel's Test positive Kim test: positive right side / left side Thigh Thrust Test Sacral Thrust Test Imaging: MRI noncontrast of the lumbar spine from 01/09/23 review Assessment/ Plan : Lumbar DDD, Lumbar anterolisthesis Recommendation of BL MBB L3-L5 #1. May need a series of injections, up until RFA, for optimal pain relief. Risks, benefits of procedure discussed and patient verbalized understanding. Protocol for discontinuation/continuation of medications surrounding procedure discussed. Minimal anesthesia including Versed and Fentanyl if clinically indicated. All questions answered. I have spent greater than 30 minutes on patient care today. Dr Law was available by phone for the evaluation of this patient. The time was used to review the medical records including relevant urine studies and Prescription history (MAPs), review of the available imaging, evaluation and examination of the patient, coordination of care with the medical staff and if applicable referring physicians, as well as creation of the medical record PQRS Narrative: Hx Alcohol Use (MH) No Home Medications: Ambulatory Orders Albuterol Sulfate [Proair Hfa] 2 puff INHALATION RT-Q6H PRN 10/23/21 Ascorbic Acid [Vitamin C] 1,000 mg PO DAILY 10/23/21 Budesonide-Formot 160-4.5 Mcg [Symbicort 160-4.5 Mcg Inhaler] 2 puff INHALATION RT-BID 10/23/21 Cholecalciferol [Vitamin D3 (25 Mcg = 1000 Iu)] 25 mcg PO DAILY 10/23/21 HYDROcodone/APAP 10-325MG [[place] 10-325] 1 tab PO Q6H 10/23/21 Loratadine [Claritin] 10 mg PO DAILY 10/23/21 Montelukast [Singulair] 10 mg PO DAILY 10/23/21 Omeprazole 20 mg PO DAILY 10/23/21 Rosuvastatin Calcium [Crestor] 40 mg PO DAILY 10/23/21 Metoprolol Succinate (ER) [Toprol XL] 25 mg PO DAILY #30 tab 10/25/21 Aspirin EC [Ecotrin Low Dose] 81 mg PO DAILY 12/06/21 Nitroglycerin Sl Tabs [Nitrostat] 0.4 mg SL Q5M PRN 12/06/21 metFORMIN HCL ER [Glucophage XR] 500 mg PO DAILY@1500 12/06/21 lisinopriL [Zestril] 5 mg PO DAILY 12/10/21 Baclofen 10 mg PO BID 04/14/23 Dulaglutide [Trulicity] 4.5 mg SQ FR 04/14/23 Mirabegron [Myrbetriq] 50 mg PO DAILY 04/14/23 Multivit-Min/Iron/Folic/Lutein [Centrum Silver Women Tablet] 1 each PO DAILY 04/14/23 Controlled Substance Measures - Controlled Substance Measures Is patient prescribed a controlled substance at discharge?: No
[2023-06-11 14:32] VITALS: BP 130/68; PULSE 66; RESP 15; TEMP 98.1
== END ==
LOC: PNWHC3 13:54
PROVIDERS: ATTEND Specialist
DX: M51.37 Other intervertebral disc degeneration, lumbosacral region (principal); M43.16 Spondylolisthesis, lumbar region; Z88.8 Allergy status to other drugs, medicaments and biological substances
CPT/HCPCS: 99211

== ENCOUNTER 2023-07-04 08:44 | Day surgery (SDC) | payer OTHER ==
[2023-07-02 16:56] VITALS: BMI 46.4
[2023-07-04 09:26] LABS: Glucose,Whole Blood 119 mg/dL (70-110)
[2023-07-04] MEDS: LACTATED RINGERS 1,000 ML IV SCH (09:28)
[2023-07-04] MEDS ORDERED: fentaNYL (PF) 50 MCG/ML 2 ML AMP ONE (09:33)
[2023-07-04] MEDS ORDERED: MIDAZOLAM 2 MG/2 ML VIAL ONE (09:33)
[2023-07-04] MEDS ORDERED: ROPIVACAINE 5MG/ML 20ML VIAL ONE (09:38)
[2023-07-04 09:40] VITALS: TEMP 97.5
--- NOTE | 2023-07-04 09:49 | P.PCN ---
Date of Procedure: 07/04/23 Procedure(s) Performed: PREOPERATIVE DIAGNOSIS : 1- Lumbar spondylosis with Facet Arthropathy with out myelopathy . 2- Lumber degenerative disc disease POSTOPERATIVE DIAGNOSIS: 1- Lumbar spondylosis with Facet Arthropathy without myelopathy . 2- Lumber degenerative disc disease PROCEDURE: Diagnostic bilateral L3 , L4 , and L5 medial branch block under fluoroscopy guidance(fluoroscopy images available in the radiology Department ) ( To target the facet joint between Bilateral L4-5 , and L5-S1 )#1st ANESTHESIA:, Monitored anesthesia care as per anesthesia department. EBL: Minimal COMPLICATION: None PROCEDURE INDICATION: Chronic low back pain secondary to Facet arthropathy unresponsive to conservative treatment. PROCEDURE DESCRIPTION: the patient was seen and identified in the preop holding area , risks and benefits and possible complications of the procedure and alternative were discussed with the patient, and the patient agreed to proceed with the procedure and signed the consent and vital signs monitored during the procedure and fluoroscopy was used to maximize the benefit and accuracy of the needle placement, and sedation was given to decrease patient anxiety, patient was taken to the procedure room and placed in prone position vital signs monitored in the back prepped with chlorhexidine X3 then under strict sterile technique using a right oblique fluoroscopy ,the junction of the transverse process and the superior articulating process of the right L3 , L4 , and L5 vertebra which corresponding to the fluoroscopy image of the eye of the Zeke dog on the block side for the medial branches and subsequently , after local infiltration of skin and subcu tissuies with Ropivacaine 0.5 % , one mL at each level ,then 22-gauge 5 inches long Quincke-type needles , 3 needle was used , each one of them placed at the junction of the base of the transverse process and the superior articular process at the appropriate level, and the needle was advanced until the periosteum contacted, needle placement confirmed with AP oblique and lateral view and after appropriate needle placement confirmed, and after negative aspiration for heme and CSF and there was no paresthesia 1-1/2 mL of Ropivacaine 0.5% , then half mL injected at each level after negative aspiration the needle subsequently removed and the same procedure repeated for the left side at left side at L3 , L4 and L5 levels. At the end of the procedure and the needles removed and a bandage applied after the skin was cleaned the cleaning solution patient taken to recovery room in stable condition and monitors in the recovery room for 20-30 minutes and discharged home in stable condition after discharge criteria met and patient will follow up with the pain clinic in 2-4 weeks
[2023-07-04 10:26] VITALS: BP 102/63; PULSE 75; RESP 16
--- NOTE | 2023-07-04 19:23 | FL ---
EXAMINATION TYPE: FL guided pain mgmt statistic DATE OF EXAM: 07/04/2023 FLUOROSCOPY FACET BLOCK BILATERAL, FLUORO TIME 11.4 SECONDS, .20807 mGycm2 DAP. 4 images are submitted.
== END 2023-07-04 10:40 | disposition home or self-care (01) ==
LOC: ORPAIN 08:44
PROVIDERS: ATTEND Specialist
DX: M51.36 Other intervertebral disc degeneration, lumbar region (principal); M47.816 Spondylosis without myelopathy or radiculopathy, lumbar region; I25.10 Atherosclerotic heart disease of native coronary artery without angina pectoris; I25.2 Old myocardial infarction; G89.18 Other acute postprocedural pain; I10 Essential (primary) hypertension; E78.5 Hyperlipidemia, unspecified; J45.909 Unspecified asthma, uncomplicated; G47.33 Obstructive sleep apnea (adult) (pediatric); F17.210 Nicotine dependence, cigarettes, uncomplicated; E11.9 Type 2 diabetes mellitus without complications; E07.9 Disorder of thyroid, unspecified; F12.90 Cannabis use, unspecified, uncomplicated; K21.9 Gastro-esophageal reflux disease without esophagitis; Z88.8 Allergy status to other drugs, medicaments and biological substances; Z79.01 Long term (current) use of anticoagulants; Z79.51 Long term (current) use of inhaled steroids; Z79.84 Long term (current) use of oral hypoglycemic drugs; Z79.890 Hormone replacement therapy; Z79.899 Other long term (current) drug therapy; Z79.82 Long term (current) use of aspirin
CPT/HCPCS: 64494 ×2; 64493; J2250; J3010; J2795

== ENCOUNTER → 2023-07-24 | Outpatient (CLI) | payer OTHER ==
--- NOTE | 2023-07-24 14:36 | P.PAINPG ---
PQRS Measure Charge Sheet Comment: HISTORY OF PRESENT ILLNESS: A 58 yr old female w granddaughter at side presents today w severe and chronic LBP x 1 yr secondary to anterolisthesis, DDD, spondylosis and facet arthropathy without myelopathy for evaluation s/p BL MBB L3-L5 #1. Pt states she experienced 0 % pain relief s/p procedure. Pt states pain level is provoked at 5 /10 in intensity, intermittent, predominantly axial, localized in the lower lumbar spine, tight in character without shooting pain. Pain is provoked by standing for periods of 20 min or more. Pain is alleviated by use of a walking cane for ambulatory assistance, chiropractic treatments in 2020, physician guided home exercises 5 times weekly since Mar 2022, medications, reclining and rest. Note: PT x 6 wks was in Mar 2022, however it provoked intractable pain and was discharged w physician guided home exercises which she has been performing 5 times weekly since Mar 2022. Oswestry axial pain score of 23. Interventional procedures include MEG L5-S1 x1, BL TPIs L2- S1 x1, BL MBB L3-L5 x1 Medications include [place] #120, Baclofen REVIEW OF ORGAN SYSTEMS: CONSTITUTIONAL: No fevers or chills. No recent weight loss. NEUROLOGICAL: + numbness and tingling along the distal extremities. No seizure disorders or headaches. MUSCULOSKELETAL: + pain PSYCHIATRIC: Denies current depression or suicidal thoughts. Physical Examinations : Constitutional : Cooperative , not in acute distress . Neurologic : Cranial nerve II to XII intact. No focal neurological deficits. Psychiatric : alert & oriented x 3. Matching mood & appropriate affect. Judgment & insight intact. Musculoskeletal : Cervical Spine Motor strength in the deltoid and biceps: Normal right side. Normal Left side Motor strength biceps and the wrist extensors: Normal right side . Normal left side Motor strength in the triceps muscle: Normal right side. Normal left side Deep tendon reflexes: Normal at the biceps. Normal at Brachioradialis. Normal at triceps Vertebral body tenderness to deep palpation over Cervical facet loading test: positive bilaterally Spurling test: positive bilaterally Neck distraction test: positive bilaterally Kali sign: positive bilaterally Lumbar spine Motor strength lower extremities ,thigh and legs 5/5 Right side , 5/5 Left side Deep tendon reflexes : Normal Knee Jerk. Normal Ankle Jerk Vertebral body tenderness over L3 Calvert Test positive over L L3-L4 Lumbar facet Loading Test: positive Right / positive Range of motion of the lumbar spine Flexion 30 degrees, extension < 10 degrees Taut bands w twitch response Straight Leg Raise test: Left/ Right positive at degree Kim test: positive right / positive left. Severe tenderness over the Sacroiliac joint on the Right / Left sides Gaenslen test: positive bilaterally Seated flexion test: positive bilaterally. Sacral spine : Severe tenderness over the Sacroiliac joint: right side / left side Range of motion: Flexion of the lumbar spine <60 degrees Range of motion: Extension of the lumbar spine <20 degrees Gaenslen's Test positive Juan Manuel's Test positive Kim test: positive right side / left side Thigh Thrust Test Sacral Thrust Test Imaging: MRI noncontrast of the lumbar spine from 01/09/23 review Assessment/ Plan : Lumbar DDD, Lumbar anterolisthesis Recommendation of MEG L3-L4 #1. May need a series of injections for optimal pain relief. Risks, benefits of procedure discussed and patient verbalized under standing. Protocol for discontinuation/continuation of medications surrounding procedure discussed. Minimal anesthesia including Versed and Fentanyl if clinically indicated. All questions answered. I have spent greater than 30 minutes on patient care today. Dr Law was available by phone for the evaluation of this patient. The time was used to review the medical records including relevant urine studies and Prescription history (MAPs), review of the available imaging, evaluation and examination of the patient, coordination of care with the medical staff and if applicable referring physicians, as well as creation of the medical record PQRS Narrative: Hx Alcohol Use (MH) No Home Medications: Ambulatory Orders Albuterol Sulfate [Proair Hfa] 2 puff INHALATION RT-Q6H PRN 10/23/21 Budesonide-Formot 160-4.5 Mcg [Symbicort 160-4.5 Mcg Inhaler] 2 puff INHALATION RT-BID 10/23/21 Cholecalciferol [Vitamin D3 (25 Mcg = 1000 Iu)] 25 mcg PO DAILY 10/23/21 HYDROcodone/APAP 10-325MG [[place] 10-325] 1 tab PO Q6H 10/23/21 Loratadine [Claritin] 10 mg PO DAILY 10/23/21 Montelukast [Singulair] 10 mg PO DAILY 10/23/21 Omeprazole 20 mg PO DAILY 10/23/21 Rosuvastatin Calcium [Crestor] 40 mg PO DAILY 10/23/21 Metoprolol Succinate (ER) [Toprol XL] 25 mg PO DAILY #30 tab 10/25/21 Aspirin EC [Ecotrin Low Dose] 81 mg PO DAILY 12/06/21 Nitroglycerin Sl Tabs [Nitrostat] 0.4 mg SL Q5M PRN 12/06/21 metFORMIN HCL ER [Glucophage XR] 500 mg PO BID 12/06/21 lisinopriL [Zestril] 10 mg PO DAILY 12/10/21 Baclofen 10 mg PO BID 04/14/23 Dulaglutide [Trulicity] 4.5 mg SQ FR 04/14/23 Mirabegron [Myrbetriq] 50 mg PO DAILY 04/14/23 Multivit-Min/Iron/Folic/Lutein [Centrum Silver Women Tablet] 1 each PO DAILY 04/14/23 Controlled Substance Measures - Controlled Substance Measures Is patient prescribed a controlled substance at discharge?: Yes When asked, does pt state using other controlled substances?: Yes If prescribed controlled substance>3 days was MAPS reviewed?: Prescribed <3 Days
[2023-07-24 15:07] VITALS: BP 147/76; PULSE 74; RESP 15; TEMP 98.1
== END ==
LOC: PNWHC3 13:52
PROVIDERS: ATTEND Specialist
DX: M51.36 Other intervertebral disc degeneration, lumbar region (principal); M43.16 Spondylolisthesis, lumbar region; F12.90 Cannabis use, unspecified, uncomplicated; Z88.1 Allergy status to other antibiotic agents
CPT/HCPCS: 99211

== ENCOUNTER → 2024-06-08 | Outpatient (CLI) | payer OTHER ==
--- NOTE | 2024-06-08 13:10 | MM ---
Reason for Exam: Screening (asymptomatic). Last mammogram was performed 4 year(s) and 9 month(s) ago. Patient History: Menarche at age 11. First Full-Term at age 19. Postmenopausal. Sister had breast cancer, age 56. Risk Values: Lis 5 year model risk: 2.7%. NCI Lifetime model risk: 13.6%. Prior Study Comparison: 06/03/2017 Bilateral Screening Mammogram, [facility]. 05/05/2018 Bilateral Diagnostic Mammogram, [facility]. 09/08/2019 Bilateral Screening Mammogram, [facility]. Tissue Density: There are scattered areas of fibroglandular density. Findings: Analyzed By CAD. There is no suspicious group of microcalcifications or new suspicious mass in either breast. Overall Assessment: Benign, BI-RAD 2 Management: Screening Mammogram of both breasts in 1 year. . Patient should continue monthly self-breast exams. A clinical breast exam by your physician is recommended on an annual basis. This exam should not preclude additional follow-up of suspicious palpable abnormalities. Note on Lis scores and lifetime risk: 1. A Lis score greater than 3% is considered moderate risk. If this is the case, consider specialist referral to assess eligibility for a risk reducing agent. 2. If overall lifetime risk for the development of breast cancer is 20% or higher, the patient may qualify for future screening with alternating mammogram and breast MRI. [facility], , 06/08/2024 1:07 PM. Electronically signed and approved by: Orion Beard M.D. Radiologis
--- NOTE | 2024-06-08 13:17 | BD ---
EXAMINATION TYPE: Axial Bone Density DATE OF EXAM: 06/08/2024 CLINICAL HISTORY: 59 years old Female. ICD-10 CODE: T85711 OSTEOPENIA OF RIGHT HIP , Additional Hist ory: Height: 63 Weight: 176.5 FRAX RISK QUESTIONS: Alcohol (3 or more units per day): no Family History (Parent hip fracture): no Glucocorticoids (More than 3mos): no (Ex: prednisone, prednisolone, methylprednisolone, dexamethasone, and hydrocortisone). History of Fracture in Adulthood: no Secondary Osteoporosis: 1. Type 1 Diabetes: no 2. Hyperthyroidism: no 3. Menopause before 45: yes 4. Malnutrition: no 5. Chronic liver disease: no Rheumatoid Arthritis: no Current Tobacco Use: yes RISK FACTORS HISTORY OF: Hip Fracture (Right/Left): no Spine Fracture: no History of Wrist Fracture: no Surgery to Spine/Hip(right/left)/Wrist (right/left): no MEDICATIONS: Thyroid Medications: no Osteoporosis Medications: no EXAM MEASUREMENTS: Bone mineral densitometry was performed using the [employer] nv System. Bone mineral density as measured about the Lumbar spine is: ----- L1-L4(G/cm2): 1.453 T Score Values are as follows: ----- L1: -0.8 ----- L2: 0.8 ----- L3: 3.9 ----- L4: 4.7 ----- L1-L4: 2.3 Z Score Values are as follows: ----- L1: -0.1 ----- L2: 1.5 ----- L3: 4.6 ----- L4: 5.4 ----- L1-L4: 3.0 Baseline Study Bone mineral density about the R hip (g/cm2): 1.017 Bone mineral density about the L hip (g/cm2): 0.928 T Score values are as follows: -----R Neck: -0.7 -----L Neck: -1.3 -----R Total: 0.1 -----L Total: -0.6 Z Score values are as follows: -----R Neck: 0.2 -----L Neck: -0.4 -----R Total: 0.6 -----L Total: -0.1 Baseline Study FRAX%s: The graph provided illustrates a 7.3chance for a major osteoporotic fx and a 0.9chance for th e hips probability for fx in 10 years time. IMPRESSION: Normal (Values between +1 and -1 indicate normal bone mass). Consider repeating this study in 5 year s or sooner if there is some new clinical indication. NOTE: T-SCORE=SD OF THE YOUNG ADULT MEAN. [facility], , 06/08/2024 1:15 PM
--- NOTE | 2024-06-08 14:22 | CTL ---
EXAMINATION TYPE: CT Low Dose Lung DATE OF EXAM: 06/08/2024 1:51 PM COMPARISON: 12/01/2021 CLINICAL INDICATION: Female, 59 years old with history of Z12.2 Screening; F17.210 Nicotine dependenc e; nicotine dependence, history of tobacco use. TECHNIQUE: Multiple axial non-contrast scans were obtained from approximately the lung apices through the upper abdomen. Coronal and sagittal reformatted images were obtained. Low dose technique was uti lized. MIP were created on a separate workstation and submitted for review. CT DLP: 75 mGycm, Automated exposure control for dose reduction was used. CT Contrast: Contrast used: None Oral contrast used: None FINDINGS: Lack of intravenous contrast and low dose technique limits the evaluation of the vascular and soft ti ssue structures. LUNGS: No evidence of pulmonary fibrosis. No evidence of focal consolidation, pneumothorax or pleural effusion. Centrilobular and paraseptal emphysema changes. Nodules: RUL: 4 mm series 3 image 13., Stable RML: Calcified granuloma. RLL: None. SELVIN: 6 mm series 3 image 158. No new LLL: None. AIRWAY: Patent and unremarkable. HEART: Size within normal limits. Moderate coronary artery calcifications present. MEDIASTINUM: No gross evidence of adenopathy. VASCULATURE: No aortic aneurysm. MUSCULOSKELETAL: Mild disc degeneration changes are present throughout the thoracolumbar spine., juan carlos te appearing left-sided rib fractures the ribs 10 through 12. SOFT TISSUES/LYMPH NODES: Unremarkable. LOWER NECK: No significant findings. UPPER ABDOMEN: Right adrenal 31 mm -16 Hounsfield units nodule compatible with lipid rich adrenal dano noma. Left adrenal nodule 19 mm in -11 Hounsfield units compatible lipid rich adenoma. IMPRESSION: 1. New left upper lobe 6 mm nodule. Six-month follow-up CT low dose chest recommended. 2. Mild emphysema. 3. Bilateral adrenal nodule with lipid rich adrenal adenomas. 4. Remote left-sided rib fractures of ribs 10 and [address] LUNG RAD AND CT CHEST RECOMMENDATION: Lung-Rad 3 Probably Benign: 6 month follow-up LDCT. S Modifier (other clinically significant findings): None Recommend smoking cessation (if current smoker), or continuation of smoking cessation (if prior smoke r). Annual screening for lung cancer with low-dose computed tomography is recommended in adults ages 55 to 77 years who have a 30 pack-year smoking history and currently smoke or have quit within the pa st 15 years. Screening should be discontinued once a person has not smoked for 15 years or develops a health problem that substantially limits life expectancy or the ability or willingness to have curat sarkis lung surgery. Lung rads 2021 [email or web address] [facility], , 06/08/2024 2:20 PM
== END | disposition home or self-care (01) ==
LOC: RADBDWWP 12:17
PROVIDERS: ATTEND Internal Medicine
DX: Z12.31 Encounter for screening mammogram for malignant neoplasm of breast (principal); Z12.2 Encounter for screening for malignant neoplasm of respiratory organs; F17.210 Nicotine dependence, cigarettes, uncomplicated; M85.851 Other specified disorders of bone density and structure, right thigh; R92.323 Mammographic fibroglandular density, bilateral breasts; J43.9 Emphysema, unspecified; D35.02 Benign neoplasm of left adrenal gland; D35.01 Benign neoplasm of right adrenal gland; R91.1 Solitary pulmonary nodule; Z78.0 Asymptomatic menopausal state; Z80.3 Family history of malignant neoplasm of breast
CPT/HCPCS: 71271; 77063; 77067; 77080